=== PATIENT | female | born 1960 | race Caucasian/White ===

== ENCOUNTER 2019-09-18 11:17 | Emergency (ER) | payer OTHER, SELFPAY ==
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
--- NOTE | 2019-09-18 13:10 | RAD REPORT ---
EXAM DESCRIPTION: RAD - Ankle Left 3 View - 09/18/2019 12:50 pm CLINICAL HISTORY: ankle pain COMPARISON: <Comparisons> FINDINGS: No acute fracture or dislocation. Small ankle joint effusion seen. Small calcaneal spurs.
--- NOTE | 2019-09-18 13:12 | RAD REPORT ---
EXAM DESCRIPTION: RAD - Foot Left 3 View - 09/18/2019 12:50 pm CLINICAL HISTORY: foot pain COMPARISON: <Comparisons> FINDINGS: No acute fracture or dislocation is seen. Small calcaneal spurs.
[2019-09-18 13:25] VITALS: BP 124/92; TEMP 98.7; O2SAT 100
== END 2019-09-18 13:04 | disposition home or self-care (01) ==
LOC: ER 11:17
DX: S93.402A Sprain of unspecified ligament of left ankle, initial encounter (principal); V28.1XXA Motorcycle passenger injured in noncollision transport accident in nontraffic accident, initial encounter; Y93.89 Activity, other specified; Y92.410 Unspecified street and highway as the place of occurrence of the external cause
CPT/HCPCS: 99282

== ENCOUNTER 2021-07-30 10:14 | Emergency (ER) | payer OTHER ==
--- NOTE | 2021-07-30 11:57 | RAD REPORT ---
EXAM DESCRIPTION: RAD - Knee Left 3 View - 07/30/2021 11:47 am CLINICAL HISTORY: pain post fall Fall, trauma, pain COMPARISON: No comparisons FINDINGS: Small suprapatellar joint effusion is seen. Lucency is seen the anterior aspect of the pat cristian likely representing a patella fracture.
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
--- NOTE | 2021-07-30 13:10 | ER ---
Nurse's Notes [facility] Name: Francisca Wolfe Age: 60 yrs Sex: Female : 1960 Arrival Date: 07/30/2021 Time: 10:16 Bed DX3 Private MD: Diagnosis: Fracture of patella;Fall on same level, unspecified Presentation: 07/30 10:31 Chief complaint: Patient states: left knee pain post fall at [facility]. Denies head aa5 injury or any other complaints. Coronavirus screen: At this time, the client does not indicate any symptoms associated with coronavirus-19. Ebola Screen: Patient negative for fever greater than or equal to 101.5 degrees Fahrenheit, and additional compatible Ebola Virus Disease symptoms. Initial Sepsis Screen: Does the patient meet any 2 criteria? No. Patient's initial sepsis screen is negative. Does the patient have a suspected source of infection? No. Patient's initial sepsis screen is negative. Risk Assessment: Do you want to hurt yourself or someone else? Patient reports no desire to harm self or others. Onset of symptoms was July 30, 2021. 10:31 Method Of Arrival: Wheelchair aa5 10:31 Acuity: EMILEE 4 aa5 Triage Assessment: 12:37 Injury Description: fall. ap3 Historical: - Allergies: 10:32 No Known Allergies; aa5 - PMHx: 10:32 chronic back pain; aa5 - Immunization history:: Adult Immunizations unknown. - Social history:: Smoking status: Patient denies any tobacco usage or history of. - Family history:: not pertinent. Screenin:35 Abuse screen: Denies threats or abuse. Nutritional screening: No deficits noted. ap3 Tuberculosis screening: No symptoms or risk factors identified. 12:38 Fall Risk Fall in past 12 months (25 points). No secondary diagnosis (0 pts). No IV (0 ap3 pts). Ambulatory Aid- Crutches/Cane/Walker (15 pts). Gait- Weak (10 pts.). Mental Status- Oriented to own ability (0 pts). Total Carlos Fall Scale indicates High Risk Score (45 or more points). Fall prevention measures have been instituted. Frequent Obs/Assessments Occuring Family Present and informed to notify staff if the need to leave the bedside As available patient and family educated on Fall Prevention Program and Strategies. Assessment: 12:34 Reassessment: patient placed in treatment chair patient accompanied by spouse. ap3 12:35 General: Appears in no apparent distress. comfortable, Behavior is calm, cooperative, ap3 appropriate for age. Pain:. Neuro: Level of Consciousness is awake, alert, obeys commands, Oriented to person, place, time, situation, Appropriate for age [employer]r are equal bilaterally Speech is normal. Cardiovascular: Capillary refill < 3 seconds Patient's skin is warm and dry. Respiratory: Airway is patent Respiratory effort is even, unlabored, Respiratory pattern is regular, symmetrical. GI: No signs and/or symptoms were reported involving the gastrointestinal system. : No signs and/or symptoms were reported regarding the genitourinary system. EENT: No signs and/or symptoms were reported regarding the EENT system. Derm: No signs and/or symptoms reported regarding the dermatologic system. Musculoskeletal:. 12:36 Pain: Complains of pain in left knee. Musculoskeletal: Reports weakness in left leg ap3 numbness in left knee. Vital Signs: 10:31 BP 141 / 92; Pulse 68; Resp 18 S; Temp 97.4(TE); Pulse Ox 100% on R/A; Weight 63.5 kg aa5 (R); Height 5 ft. 2 in. (157.48 cm) (R); 10:31 Body Mass Index 25.61 (63.50 kg, 157.48 cm) aa5 ED Course: 10:16 Patient arrived in ED. as 10:31 Arm band placed on. aa5 10:32 Triage completed. aa5 11:47 Knee Left 3 View XRAY In Process Unspecified. EDMS 12:37 Patient has correct armband on for positive identification. Adult w/ patient. Pulse ox ap3 on. NIBP on. Warm blanket given. 12:41 Oneal Waters MD is Attending Physician. kartik 13:06 Knee immobilizer applied on left knee. iw 13:08 Vladimir Rodríguez MD is Referral Physician. kartik 13:15 Daksha Call RN is Primary Nurse. iw 13:22 No provider procedures requiring assistance completed. Patient did not have IV access kg during this emergency room visit. Administered Medications: 13:20 Not Given (Patient Refused): [place] (HYDROcodone-acetaminophen) 10 mg-325 mg 1 tabs PO kg once; RASS on ADMIN: Combtv4, Very Agttd3, Agttd2, Rstlss1, AlertClm0, Drwsy-1, Lt Sdtn-2, Mod Sdtn-3, Dp Sdtn-4, UnArsble-5 13:20 Not Given (Patient Refused): Motrin (ibuprofen) 600 mg PO once kg Outcome: 13:09 Discharge ordered by . kartik 13:22 Discharged to home via wheelchair. kg 13:22 Condition: good 13:22 Discharge instructions given to patient, family, Instructed on discharge instructions, follow up and referral plans. Demonstrated understanding of instructions, follow-up care. 13:26 Patient left the ED. iw Signatures: Dispatcher [employer] EDMS Oneal Waters MD MD cha Martinez, Amelia as Williams, Irene, RN RN iw Deidra Sow RN RN aa5 Kasie Kovacs RN RN ap3 Shyla Dunn RN RN kg Corrections: (The following items were deleted from the chart) 10:33 10:31 Chief complaint: Patient states: left knee pain post fall at [facility]. aa5 aa5
[2021-07-30 13:39] VITALS: BP 141/92; TEMP 97.4; O2SAT 100
[2021-07-30] MEDS ORDERED: HYDROCODONE/APAP 10/325 TAB ONE (13:42)
[2021-07-30] MEDS ORDERED: IBUPROFEN 200 MG TAB PO ONE (13:42)
== END 2021-07-30 13:26 | disposition home or self-care (01) ==
LOC: ER 10:14
DX: S82.002A Unspecified fracture of left patella, initial encounter for closed fracture (principal); W18.30XA Fall on same level, unspecified, initial encounter; Y92.512 Supermarket, store or market as the place of occurrence of the external cause
CPT/HCPCS: 99283

== ENCOUNTER 2024-04-12 11:17 | Emergency (ER) | payer OTHER ==
[2024-04-12] MEDS ORDERED: TDAP (DIPHTH,PERTUSS(ACELL),TET VAC) 0.5 ML VIAL IMVAC ONE (11:34)
--- NOTE | 2024-04-12 11:43 | ER ---
Nurse's Notes [facility] Name: Francisca Wolfe Age: 63 yrs Sex: Female : 1960 Arrival Date: 04/12/2024 Time: 11:17 Bed 11 Private MD: Diagnosis: Bitten by horse, initial encounter Presentation: 04/12 11:25 Chief complaint: Patient states: she was bitten by her horse on her right upper arm. ap3 patient currently states her pain is a 10/10 on the pain scale. Coronavirus screen: At this time, the client does not indicate any symptoms associated with coronavirus-19. Ebola Screen: No symptoms or risks identified at this time. Initial Sepsis Screen: Does the patient meet any 2 criteria? No. Patient's initial sepsis screen is negative. Does the patient have a suspected source of infection? No. Patient's initial sepsis screen is negative. Risk Assessment: Do you want to hurt yourself or someone else? Patient reports no desire to harm self or others. Onset of symptoms was April 12, 2024. 11:25 Method Of Arrival: Ambulatory ap3 11:25 Acuity: EMILEE 3 ap3 Triage Assessment: 11:27 General: Appears uncomfortable, Behavior is calm, cooperative, appropriate for age. ap3 Pain: Complains of pain in right bicep Pain currently is 10 out of 10 on a pain scale. Neuro: Level of Consciousness is awake, alert, obeys commands, Oriented to person, place, time, situation, Appropriate for age. Cardiovascular: Patient's skin is warm and dry. Respiratory: Airway is patent Respiratory effort is even, unlabored, Respiratory pattern is regular, symmetrical. Derm: Wound noted right bicep. Historical: - Allergies: 11:26 No Known Allergies; ap3 - PMHx: 11:26 chronic back pain; ap3 - Immunization history:: Client reports receiving the 2nd dose of the Covid vaccine, Last tetanus immunization: unknown. - Infectious Disease History:: Denies. - Social history:: Smoking status: Patient denies any tobacco usage or history of. Screenin:27 [facility] ED Fall Risk Assessment (Adult) History of falling in the last 3 months, ap3 including since admission No falls in past 3 months (0 pts) Confusion or Disorientation No (0 pts) Intoxicated or Sedated No (0 pts) Impaired Gait No (0 pts) Mobility Assist Device Used No (0 pt) Altered Elimination No (0 pt) Score/Fall Risk Level 0 - 2 = Low Risk Oriented to surroundings, Maintained a safe environment, Educated pt \T\ family on fall prevention, incl call for assistance when getting out of bed, Assessed \T\ reinforced patient's understanding of fall precautions, Provided non-skid footwear, Hourly rounding (assess needs \T\ fall precautionary measures) done, Used ambulatory aids as needed (educated on \T\ assisted with), Used gait belt as appropriate. Abuse screen: Denies threats or abuse. Nutritional screening: No deficits noted. Tuberculosis screening: No symptoms or risk factors identified. Vital Signs: 11:25 BP 172 / 96; Pulse 80; Resp 19; Temp 98.8; Pulse Ox 100% ; Weight 63.5 kg; Height 5 ft. ap3 2 in. ; Pain 10/10; 11:25 Body Mass Index 25.61 (63.50 kg, 157.48 cm) ap3 11:25 Pain Scale: Adult ap3 ED Course: 11:18 Patient arrived in ED. mr 11:19 David Degroot DO is Attending Physician. ms3 11:26 Triage completed. ap3 11:28 Arm band placed on left wrist. ap3 11:37 Jose Mendez DO is Referral Physician. ms3 11:41 Kasie Kovacs, RN is Primary Nurse. ap3 11:58 No provider procedures requiring assistance completed. Patient did not have IV access ap3 during this emergency room visit. 11:59 Patient has correct armband on for positive identification. Provided Education on: ap3 wound care. Administered Medications: 11:41 Drug: Boostrix Tdap IM 0.5 ml IM once; as a single dose Route: IM; Site: left deltoid; ap3 11:58 Follow up: Response: No adverse reaction ap3 Medication: 11:59 VIS not applicable for this client. ap3 Outcome: 11:42 Discharge ordered by . ms3 11:58 Discharged to home ambulatory, ap3 11:58 Condition: good 11:58 Discharge instructions given to patient, family, Instructed on discharge instructions, follow up and referral plans. medication usage, Demonstrated understanding of instructions, follow-up care, medications, Prescriptions given X 1, 11:59 Patient left the ED. ap3 Signatures: Nida Oh, Reg Reg mr Kasie Kovacs, RN RN ap3 David Degroot DO DO ms3 Corrections: (The following items were deleted from the chart) 11:27 11:26 PSHx: None; ap3 ap3
--- NOTE | 2024-04-12 11:43 | EDPHYS ---
Physician Documentation [facility] Name: Francisca Wolfe Age: 63 yrs Sex: Female : 1960 Arrival Date: 04/12/2024 Time: 11:17 Bed 11 Private MD: ED Physician David Degroot HPI: 04/12 16:45 This 63 yrs old Female presents to ER via Ambulatory with complaints of Horse bite. ms3 16:45 63-year-old female with past medical history of chronic back pain presents to the [facility] emergency department for right arm horse bite occurred approximately 2 hours prior to arrival. Patient states her pain is 10/10. Patient is unaware of her last tetanus vaccine.. Historical: - Allergies: 11:26 No Known Allergies; ap3 - PMHx: 11:26 chronic back pain; ap3 - Immunization history:: Client reports receiving the 2nd dose of the Covid vaccine, Last tetanus immunization: unknown. - Infectious Disease History:: Denies. - Social history:: Smoking status: Patient denies any tobacco usage or history of. ROS: 16:45 Constitutional: Negative for fever, and chills. Neck: Negative for injury, pain, and ms3 swelling, Cardiovascular: Negative for chest pain, and palpitations. Respiratory: Negative for shortness of breath, cough, wheezing, and pleuritic chest pain, Abdomen/GI: Negative for abdominal pain, nausea, vomiting, diarrhea, and constipation, MS/Extremity: Negative for injury and deformity, 16:45 Skin: Positive for abrasion(s), ecchymosis, Exam: 16:45 Constitutional: This is a well developed, well nourished patient who is awake, alert, ms3 and in no acute distress. Head/Face: Normocephalic, atraumatic. Neck: Trachea midline, no cervical lymphadenopathy. Supple, full range of motion without nuchal rigidity, or vertebral point tenderness. No Meningismus. Chest/axilla: Normal chest wall appearance and motion. Nontender with no deformity. Cardiovascular: Regular rate and rhythm with a normal S1 and S2. No gallops, murmurs, or rubs. Normal PMI, no JVD. No pulse deficits. Respiratory: Lungs have equal breath sounds bilaterally, clear to auscultation and percussion. No rales, rhonchi or wheezes noted. No increased work of breathing, no retractions or nasal flaring. Abdomen/GI: Soft, non-tender, with normal bowel sounds. No distension or tympany. No guarding or rebound. No evidence of tenderness throughout. 16:45 Skin: injury, abrasion(s), small abrasion noted, of the right arm, contusion(s), that are deep, of the right arm, Vital Signs: 11:25 BP 172 / 96; Pulse 80; Resp 19; Temp 98.8; Pulse Ox 100% ; Weight 63.5 kg; Height 5 ft. ap3 2 in. ; Pain 10/10; 11:25 Body Mass Index 25.61 (63.50 kg, 157.48 cm) ap3 11:25 Pain Scale: Adult ap3 MDM: 11:29 Patient medically screened. ms3 16:45 Differential diagnosis: abrasion, Horse bite vs Hematoma. Data reviewed: vital signs, ms3 nurses notes, and as a result, I will discharge patient. I considered the following discharge prescriptions or medication management in the emergency department Medications were administered in the Emergency Department. See MAR. Counseling: I had a detailed discussion with the patient and/or guardian regarding the historical points, exam findings, and any diagnostic results supporting the discharge/admit diagnosis, the need for outpatient follow up, to return to the emergency department if symptoms worsen or persist or if there are any questions or concerns that arise at home. ED course: Discussed PE findings with patient. Patient to follow up with PMD in 2-3 days. Patient understands/ agrees with plan. All questions answered. Return precautions given to include worsening symptoms, or any other concerns.. Administered Medications: 11:41 Drug: Boostrix Tdap IM 0.5 ml IM once; as a single dose Route: IM; Site: left deltoid; ap3 11:58 Follow up: Response: No adverse reaction ap3 Disposition Summary: 04/12/24 11:42 Discharge Ordered Notes: Location: Home ms3 Condition: Stable ms3 Diagnosis - Bitten by horse, initial encounter ms3 Followup: ms3 - With: Jose Mendez DO - When: 2 - 3 days - Reason: Recheck today's complaints Discharge Instructions: - Discharge Summary Sheet ms3 - Animal Bite, Adult, [id number] ms3 Forms: - Medication Reconciliation Form ms3 - Antibiotic Education ms3 - Prescription Opioid Use ms3 - Patient Portal Instructions ms3 - Leadership Thank You Letter ms3 Prescriptions: - Augmentin 875-125 mg Oral Tablet - take 1 tablet ORAL route every 12 hours for 10 days; 20 tablet; Refills: 0, ms3 Product Selection Permitted Signatures: Kasie Kovacs RN RN ap3 David Degroot DO DO ms3 Corrections: (The following items were deleted from the chart) 11:27 11:26 PSHx: None; ap3 ap3
[2024-04-12 12:22] VITALS: BP 172/96; TEMP 98.8; O2SAT 100
== END 2024-04-12 11:59 | disposition home or self-care (01) ==
LOC: ER 11:17
DX: S40.811A Abrasion of right upper arm, initial encounter (principal); W55.11XA Bitten by horse, initial encounter
CPT/HCPCS: 96372; 99284

== ENCOUNTER 2024-04-28 18:00 | Emergency (ER) | payer OTHER ==
--- OUTSIDE RECORDS SUMMARY | 2024-04-28 18:03 | XMS REPORT | Continuity of Care Document ---
Author Name Unknown Address [address] [place] [address] [facility] thconnect Address [address] [place] [address] Care Team Providers Care Food Sampler Name Role Phone PCP, PATIENT DOES NOT HAVE A Primary Care Physic margareth Unavailable DR CESAR MADISON Attending Clinician Unavailable KAROL MITCHELL Attending Clinician Unavailab NIKI Melendez Attending Clinician Unava CALVIN Ramirez Attending Clinician Unavailable KIRSTIN WHITE Attending Clinician UnaLEE Krause Attending Clinician Unavailable LAB90 Attending Clinician Unavailable LOKESH RIBEIRO Attending Clinician Unavailable MD NURY Attending Clinician Unavailab jackson WILLS Attending Clinician Unavailable RADIOLOGY Attending Clinician Unavailable Radiology Attending Clinician Unavailable DR CESAR MADISON Admitting Clinician Unavailable JENN MORENO Admitting Clinician Unavailabl e Payers Payer Name Policy Type Policy Number Effective Date Expirati on Date Source 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 9 [id number] 2023 00:00:00 CIG[employer] I [id number] 2014 00:00:00 Problems Condition Name Condition Details Condition Category Status Onset Date Resolution Date Last Treatment Date Treating Clinician Comments Source Mild persistent asthma (HHS-HCC) Mild persistent asthma (HHS-HCC) Disease Active 05-08 00:00: 00 Kay Secheikh - Externa l Right Pneumothor ax Right Pneumothor ax Disease Active 02-27 00:00: 00 [facility] Right Hemothorax Right Hemothorax Disease Active 02-27 00:00: 00 [facility] Rib fracture (right 3rd through 8th) Rib fracture (right 3rd through 8th) Disease Active 02-27 00:00: 00 [facility] Right Scapula fracture Right Scapula fracture Disease Active 02-27 00:00: 00 [facility] Concussion Concussion Disease Active 02-27 00:00: 00 [facility] Allergies, Adverse Reactions, Alerts Allergy Name Allergy Type Status Severity Reaction(s) Onset Date Inactive Date Treating Clinician Comments Source NO KNOWN ALLERGIE S Drug Class Active [facility] Social History Social Habit Start Date Stop Date Quantity Comments Source Gender identity Salma Nieves - External Sexual orientation Danielle Nieves - External History SDOH Alcohol Std Drinks [facility] History SDOH Alcohol Binge [facility] History SDOH Alcohol Frequency [facility] Alcoholic beverage intake 2024-04-18 00:00:00 2024-04-18 00:00:00 Current drinker of alcohol (finding) Kay Nieves - External History of Social function 2023-02-23 00:00:00 2023-02-23 00:00:00 Kay Nieves - External Alcohol intake 2023-02-23 00:00:00 2023-02-23 00:00:00 Current drinker of alcohol (finding) Kay Nieves - External Tobacco use and exposure 2022-12-29 00:00:00 2022-12-29 00:00:00 Smokeless tobacco non-user Kay Nieves - External Exposure to SARS-CoV-2 (event) 2022-02-23 00:00:00 2022-03-05 15:31:00 Not sure [facility] Alcohol Comment 2016-01-09 00:00:00 2016-01-09 00:00:00 Daily wine [facility] Sex assigned at 1960 00:00:00 1960 00:00:00 Kay Nieves - External Smoking Status Start Date Stop Date Source Never smoked tobacco Kay Nieves - External Former smoker 2015-02-27 00:00:00 2015-02-27 00:00:00 [facility] Medications Ordered Medication Name Filled Medication Name Start Date Stop Date Current Medication? Ordering Clinician Indication Dosage Frequency Signature (SIG) Comments Components Source Tizanidine HCl 2 MG oral Tablet 04-18 00:00: 00 Yes [id number] 2mg Take 1 tablet (2 mg total) by mouth every 12 hours as needed for muscle spasms. Kay brice Naproxen 500 MG oral Tablet 04-18 00:00: 00 Yes [id number] 500mg Q.5D Take 1 tablet (500 mg total) by mouth 2 times daily as needed (Pain). Kay brice Amoxicillin -Pot Clavulanate 875-125 MG oral Tablet 04-12 00:00: 00 Yes TAKE ONE (1) TABLET(S) BY MOUTH EVERY TWELVE HOURS FOR 10 DAYS. Kay brice Neomycin-Po lymyxin-Dex ameth 3.5-63516-6 .1 ophthalmic Suspension 03-18 00:00: 00 Yes INSTILL ONE (1) DROP INTO LEFT EYE FOUR TIMES A DAY FOR SEVEN DAY. Kay brice Escitalopra m Oxalate 10 MG oral Tablet 02-24 00:00: 00 Yes [id number] 10mg Take 1 tablet (10 mg total) by mouth daily. Kay brice Tizanidine HCl 4 MG oral Tablet 02-24 00:00: 00 04-18 00:00 :00 No [id number] 4mg Q.25D Take 1 tablet (4 mg total) by mouth every 6 hours as needed for muscle spasms. Kay brice LISINOPRIL- HCTZ 10-12.5 MG oral Tablet 02-24 00:00: 00 02-24 00:00 :00 No [id number] 1{tbl} Take 1 tablet by mouth daily. Kay brice Fluticasone -Salmeterol 250-50 MCG/ACT inhalation AEROSOL POWDER, BREATH ACTIVATED 02-23 00:00: 00 Yes [id number] 1{puff} Inhale 1 puff into the lungs 2 times daily Kay Seybold - Externa l Albuterol HFA 108 (90 Base) MCG/ACT IN AERS 4-10 00:00: 00 Yes [id number] 2{puff} Q.25D Inhale 2 puffs into the lungs every 6 hours as needed for wheezing or shortness of breath Kay Seybold - Externa l Albuterol HFA 108 (90 Base) MCG/ACT IN AERS 2-23 00:00: 00 Yes [id number] 2{puff} Q.25D Inhale 2 puffs into the lungs every 6 hours as needed for wheezing or shortness of breath Kay Seybold - Externa l No known medications 01-10 10:03: 36 No [facility] Immunizations Ordered Immunization Name Filled Immunization Name Date Status Comments Source Influenza, Injectable, Mdck, Preservative Free, Quadrivalt 2022-10-03 00:00:00 Completed Kay Seybold - External Influenza, Injectable, Mdck, Preservative Free, Quadrivalt 2022-10-03 00:00:00 Completed Kay Seybold - External Influenza, Injectable, Mdck, Preservative Free, Quadrivalt 2022-10-03 00:00:00 Completed Kay Seybold - External Influenza, Injectable, Mdck, Preservative Free, Quadrivalt 2022-10-03 00:00:00 Completed Kay Seybold - External Influenza, Injectable, Mdck, Preservative Free, Quadrivalent Unknown Completed Kay Seybold - External Influenza, Injectable, Mdck, Preservative Free, Quadrivalent Unknown Completed Kay Seybold - External Influenza, Injectable, Mdck, Preservative Free, Quadrivalent Unknown Completed Kay Seybold - External Vital Signs Vital Name Observation Time Observation Value Comments S ourrobert Systolic blood pressure 2024-04-18 13:56:00 160 mm[Hg] Kay Mckeono ld - External Diastolic blood pressure 2024-04-18 13:56:00 88 mm[Hg] Kay Mckeono ld - External Body height 2024-04-18 13:56:00 157.5 cm Salma mansfield Seybold - External Body weight 2024-04-18 13:56:00 60.782 kg Salma ey Seybold - External BMI 2024-04-18 13:56:00 24.51 kg/m2 Salma ey Seybold - External Systolic blood pressure 2024-02-25 15:43:00 158 mm[Hg] Kay Seybo ld - External Diastolic blood pressure 2024-02-25 15:43:00 84 mm[Hg] Kay Seybo ld - External Heart rate 2024-02-25 15:43:00 89 /min Kelse y Seybold - External Body temperature 2024-02-25 15:43:00 36.83 Michelle Kay Seybold - External Respiratory rate 2024-02-25 15:43:00 15 /min Kay Seybold - External Body height 2024-02-25 15:43:00 157.5 cm Salma ey Seybold - External Body weight 2024-02-25 15:43:00 63.05 kg Salma ey Seybold - External BMI 2024-02-25 15:43:00 25.42 kg/m2 Salma ey Seybold - External Oxygen saturation in Arterial blood by Pulse oximetry 2024-02-25 15:43:00 100 /min Kay Seybo ld - External Systolic blood pressure 2023-02-23 14:51:00 145 mm[Hg] Kay Seybo ld - External Diastolic blood pressure 2023-02-23 14:51:00 85 mm[Hg] Kay Seybo ld - External Heart rate 2023-02-23 14:51:00 69 /min Kjse y Seybold - External Body temperature 2023-02-23 14:51:00 36.44 Michelle Kay Seybold - External Respiratory rate 2023-02-23 14:51:00 18 /min Kay Seybold - External Body height 2023-02-23 14:51:00 157.5 cm Salma ey Seybold - External Body weight 2023-02-23 14:51:00 63.957 kg Salma ey Seybold - External BMI 2023-02-23 14:51:00 25.79 kg/m2 Salma ey Seybold - External Oxygen saturation in Arterial blood by Pulse oximetry 2023-02-23 14:51:00 100 /min Kay Conroyybo ld - External Systolic blood pressure 2023-01-08 14:14:00 156 mm[Hg] Kay Seybo ld - External Diastolic blood pressure 2023-01-08 14:14:00 86 mm[Hg] Kay Seybo ld - External Heart rate 2023-01-08 14:14:00 84 /min Kelse y Seybold - External Body temperature 2023-01-08 14:14:00 36.61 Michelle Kay Seybold - External Respiratory rate 2023-01-08 14:14:00 18 /min Kay Seybold - External Body height 2023-01-08 14:14:00 157.5 cm Salma ey Seybold - External Body weight 2023-01-08 14:14:00 63.504 kg Salma ey Seybold - External BMI 2023-01-08 14:14:00 25.61 kg/m2 Salma ey Seybold - External Oxygen saturation in Arterial blood by Pulse oximetry 2023-01-08 14:14:00 96 /min Kay Seybo ld - External Diastolic blood pressure 2022-12-29 14:06:00 76 mm[Hg] Kay Seybo ld - External Heart rate 2022-12-29 14:06:00 78 /min Kelse y Seybold - External Body temperature 2022-12-29 14:06:00 36.56 Michelle Kay Seybold - External Respiratory rate 2022-12-29 14:06:00 14 /min Kay Seybold - External Body height 2022-12-29 14:06:00 157.5 cm Salma ey Seybold - External Body weight 2022-12-29 14:06:00 63.957 kg Salma ey Seybold - External BMI 2022-12-29 14:06:00 25.79 kg/m2 Salma ey Seybold - External Oxygen saturation in Arterial blood by Pulse oximetry 2022-12-29 14:06:00 99 /min Kay Seybo ld - External Systolic blood pressure 2022-12-29 14:06:00 134 mm[Hg] Kay Seybo ld - External Procedures Procedure Date / Time Performed Performing Clinician Source US PELVIS COMPLETE WITH TRANSVAGINAL 2022-03-26 19:32:37 Requisition, Paper [facility] Encounters Start Date/Time End Date/Time Encounter Type Admission Type Attending [facility] Facility Care Department Encounter ID Source 2018-09-16 13:00:00 Inpatient CESAR CARMONA [facility] ILSA Dolan [id number] [facility] 2024-07-25 10:00:00 2024-07-25 10:00:00 Outpatient KAROL MITCHELL [id number] [facility] 2024-05-10 09:00:00 2024-05-10 09:00:00 Outpatient NIKI BROWN [id number] [facility] 2024-04-28 16:00:00 2024-04-28 16:00:00 Outpatient CALVIN MONTELONGO [id number] [facility] 2024-04-21 00:00:00 2024-04-21 00:00:00 Outpatient KAROL MITCHELL [id number] [facility] 2024-04-21 00:00:00 2024-04-21 00:00:00 Outpatient KAY VILLANUEVA [id number] Kay [facility] 2024-04-19 15:25:00 2024-04-19 15:25:00 Outpatient KAY VILLANUEVA [id number] [facility] 2024-04-19 15:20:00 2024-04-19 15:20:00 Outpatient KAY VILLANUEVA [id number] Kay [facility] 2024-04-19 15:15:00 2024-04-19 15:15:00 Outpatient KAY VILLANUEVA [id number] Kay [facility] 2024-04-19 00:00:00 2024-04-19 00:00:00 Outpatient KAROL MITCHELL [id number] [facility] 2024-04-19 00:00:00 2024-04-19 00:00:00 Outpatient KAROL MITCHELL [id number] [facility] 2024-04-19 00:00:00 2024-04-19 00:00:00 Outpatient KAROL MITCHELL [id number] Kelsey Seybold 2024-04-18 10:20:00 2024-04-18 10:20:00 Outpatient KAY KAY [id number] Kay Seybold 2024-04-18 09:50:00 2024-04-18 09:50:00 Outpatient KAY KAY [id number] Kay Seybold 2024-04-18 08:45:00 2024-04-18 08:45:00 Outpatient MITCHELLKAROL MANZANARES KAY VILLANUEVA [id number] Kay Seybold 2024-04-18 00:00:00 2024-04-18 00:00:00 Outpatient KAY KAY [id number] Kay Seybold 2024-04-07 09:15:00 2024-04-07 09:15:00 Outpatient KAY VILLANUEVA [id number] Kay Seybold 2024-04-04 09:15:00 2024-04-04 09:15:00 Outpatient KAY VILLANUEVA [id number] Kay Seybold 2024-03-15 09:00:00 2024-03-15 09:00:00 Outpatient KIRSTIN WHITE [id number] Kay Seybold 2024-03-09 16:00:00 2024-03-09 16:00:00 Outpatient LEE MARTÍNEZ [id number] Kay Seybold 2024-03-03 00:00:00 2024-03-03 00:00:00 Outpatient KIRSTIN WHITE [id number] Kay Seybold 2024-02-26 00:00:00 2024-02-26 00:00:00 Outpatient KIRSTIN WHITE [id number] Kay Seybold 2024-02-25 11:25:00 2024-02-25 11:25:00 Outpatient SHAYY VILLANUEVA [id number] Kay Seybold 2024-02-25 10:30:00 2024-02-25 10:30:00 Outpatient KIRSTIN WHITE [id number] Kay Seybold 2023-06-17 10:15:00 2023-06-17 10:15:00 Outpatient KAY VILLANUEVA [id number] Kay Conroydolores 2023-05-08 10:00:00 2023-05-08 10:00:00 Outpatient LOKESH RIBEIRO KAY VILLANUEVA [id number] Kay Ezequiel 2023-05-04 09:30:00 2023-05-04 09:30:00 Outpatient JUAN RAMONHEATHERSMITHACHYNA VILLANUEVA [id number] Kay Conroydolores 2023-03-09 00:00:00 2023-03-09 00:00:00 Outpatient MD KAY CURTIS [id number] [facility] 2023-02-23 10:00:00 2023-02-23 10:00:00 Outpatient LOKESH RIBEIRO [id number] Kay [facility] 2023-02-11 00:00:00 2023-02-11 00:00:00 Outpatient MD KAY CURTIS [id number] Kay [facility] 2023-02-09 10:30:00 2023-02-09 10:30:00 Outpatient PLAB KAY VILLANUEVA [id number] Kay [facility] 2023-01-26 11:00:00 2023-01-26 11:00:00 Outpatient PLAB KAY VILLANUEVA [id number] Kay [facility] 2023-01-09 11:00:00 2023-01-09 11:00:00 Outpatient JUAN RAMONHEATHERLOKESH KAY VILLANUEVA [id number] Kay dolores 2023-01-08 08:30:00 2023-01-08 08:30:00 Outpatient GEMASMITHACHYNA VILLANUEVA [id number] Kay [facility] 2023-01-05 00:00:00 2023-01-05 00:00:00 Outpatient KIRSTIN WHITE [id number] Kay Seybold 2023-01-02 13:45:00 2023-01-02 13:45:00 Outpatient KAY VILLANUEVA [id number] Kay Seybdolores 2023-01-01 12:40:00 2023-01-01 12:40:00 Outpatient KAY VILLANUEVA [id number] [facility] 2023-01-01 00:00:00 2023-01-01 00:00:00 Outpatient KIRSTIN WHITE [id number] Kay Nieves 2022-12-29 08:00:00 2022-12-29 08:00:00 Outpatient KIRSTIN WHITE [id number] Kay Nieves 2022-03-26 13:25:57 2022-03-26 23:59:00 Outpatient R [facility] [id number] [facility] 2022-03-26 13:25:57 2022-03-26 23:59:00 Hospital Encounter Radiology [facility] [id number] [facility] 2018-10-28 12:40:00 2018-10-28 16:20:00 Outpatient Kelsi MADISON CESAR [facility] Dolan [id number] [facility] 2018-04-08 11:29:00 2018-04-08 15:18:00 Outpatient CESAR CARMONA [facility] ILSA C [id number] [facility] Notes Date/Time Note Provider Source 2024-04-18 09:00:58 [id number]:00:58F ormatting of this note is different from the original.Chief ComplaintPatient presents withBack PainLower backHx of PT, injection and 1 [place] [address]-9Hkbpd [id number]:47:21Nurse [id number] for patient [id number] NoteLNNARRATIVEFormatted C-CDA narrative textKAYJosyAultman Orrville Hospital[address] [facility] [facility] [id number] [facility]"
[2024-04-28 18:57] LABS: Absolute Eosinophils 0.1 K/uL (0-0.5); Absolute Lymphocytes (CBC) 1.8 K/uL (0.7-4.9); Absolute Monocytes 0.6 K/uL (0.1-1.3); Absolute Neutrophil 3.6 K/uL (1.8-8.0); Basophils % 0.7 % (0-1.3); Eosinophils % 1.8 % (0-4.4); Hematocrit 33.6 % (36.0-45.0); Hemoglobin 11.5 g/dL (12.0-15.0); Lymphocytes % 28.8 % (15.3-44.8); MCH 34.9 pg (27.0-35.0); MCHC 34.2 g/dL (32.0-36.0); MCV 102.1 fL (80-100); MPV 7.4 fL (7.6-11.3); Monocytes % 9.1 % (3.3-12.3); Neutrophils % 59.6 % (41.7-73.7); Nucleated Red Blood Cells % 0.1 % (0-0); Platelets 246 thou/uL (152-406); Red Cell Distribution Width 13.6 % (12.1-15.2)
[2024-04-28 19:00] LABS: Anion Gap 11.2 mEq/L (5.0-15.0); Potassium 4.2 mEq/L (3.5-5.1)
--- NOTE | 2024-04-28 19:59 | EDPHYS ---
Physician Documentation [facility] Name: Francisca Wolfe Age: 63 yrs Sex: Female : 1960 Arrival Date: 04/28/2024 Time: 18:00 Bed 8 Private MD: ED Physician Oneal Waters HPI: 04/28 23:49 This 63 yrs old Female presents to ER via Ambulatory with complaints of Boil. kb 23:49 Pt is a 63 year old female who presents for hematoma to right upper arm. States she was kb bitten by a horse 2 weeks ago and developed the hematoma. States it has gotten a little smaller than the original hematoma, but today she had pain and warmth that she hasn't had previously. Historical: - Allergies: 18:13 No Known Allergies; as6 - PMHx: 18:13 chronic back pain; as6 - PSHx: 18:13 back (chronic back pain); as6 - Immunization history:: Adult Immunizations up to date. - Infectious Disease History:: Denies. - Social history:: Smoking status: Patient denies any tobacco usage or history of. ROS: 19:47 Constitutional: As per HPI kb Exam: 23:45 Constitutional: This is a well developed, well nourished patient who is awake, alert, kb and in no acute distress. Head/Face: Normocephalic, atraumatic. ENT: Moist Mucous membranes Cardiovascular: Regular rate Respiratory: Respirations even and unlabored. No increased work of breathing. Talking in full sentences Abdomen/GI: Soft, non-tender. No distention MS/ Extremity: Pulses equal, no cyanosis. Neurovascular intact. Full, normal range of motion. Neuro: Awake and alert, GCS 15, oriented to person, place, time, and situation. Moves all extremities. Normal gait. 23:45 Skin: baseball sized hematoma to right upper arm with fluctuance and bruising. Vital Signs: 18:11 BP 128 / 81; Pulse 79; Resp 18; Temp 97.9; Pulse Ox 94% ; Weight 63.5 kg; Height 5 ft. as6 2 in. ; Pain 2/10; 20:09 BP 124 / 79; Pulse 72; Resp 18; Pulse Ox 95% ; cp4 18:11 Body Mass Index 25.61 (63.50 kg, 157.48 cm) as6 18:11 Pain Scale: Adult as6 MDM: 18:13 Patient medically screened. kb 19:47 Data reviewed: vital signs, nurses notes. ED course: Dr Carpenter contacted at 1834, 1902 kb and 1947. Awaiting callback. 20:00 Differential diagnosis: hematoma, cellulitis, abscess. Consideration of kb Admission/Observation Escalation of care including admission/observation considered. admission considered but pt refuses to stay overnight. States she will call Dr Carpenter's office tomorrow to make an appt. Management of patient was discussed with the following: Ham Passer: Dr Carpenter accepts pt for admission. Wants pt NPO after midnight for OR tomorrow. 20:00 Counseling: I had a detailed discussion with the patient and/or guardian regarding the kb historical points, exam findings, and any diagnostic results supporting the discharge/admit diagnosis, lab results, the need for further work-up and treatment in the hospital. ED course: PT states she does not want to stay overnight. States she lives down [address] and would like to sleep in her own bed. Pt does not think staying overnight is necessary. Pt educated that Dr Carpenter will do surgery to drain the hematoma tomorrow morning, but she would have to be admitted in order for that to happen. Pt still refuses admission, stating she will follow up with him on outpatient basis to schedule surgery. Dr Carpenter notified . 04/28 18:26 Order name: CBC with Diff; Complete Time: 19:02 kb 04/28 18:26 Order name: Basic Metabolic Panel; Complete Time: 19:02 kb 04/28 18:26 Order name: IV Start; Complete Time: 18:37 kb Administered Medications: No medications were administered Disposition Summary: 04/28/24 19:58 Discharge Ordered Notes: Location: Home kb Condition: Stable kb Diagnosis - Hematoma right upper arm s/p horse bite kb Followup: kb - With: Emergency Department - When: As needed - Reason: Worsening of condition Followup: kb - With: Private Physician - When: 2 - 3 days - Reason: Recheck today's complaints, Continuance of care, Re-evaluation by your physician Followup: kb - With: Tam Carpenter MD - When: 1 - 2 days - Reason: Recheck today's complaints Discharge Instructions: - Discharge Summary Sheet kb - Hematoma, [id number] kb Forms: - Medication Reconciliation Form kb - Patient Portal Instructions kb - Leadership Thank You Letter kb Signatures: Dispatcher [employer] Lakeisha Davila FNP-C FNP-Ckb Slawson, Ashby, RN RN as6
--- NOTE | 2024-04-28 19:59 | ER ---
Nurse's Notes [facility] Name: Francisca Wolfe Age: 63 yrs Sex: Female : 1960 Arrival Date: 04/28/2024 Time: 18:00 Bed 8 Private MD: Diagnosis: Hematoma right upper arm s/p horse bite Presentation: 04/28 18:11 Chief complaint: Patient states: pt was bit by her horse 2 weeks ago and has been on as6 antibiotics and states she arm isn't getting better. abscess noted to right arm. Coronavirus screen: At this time, the client does not indicate any symptoms associated with coronavirus-19. Ebola Screen: No symptoms or risks identified at this time. Initial Sepsis Screen: Does the patient meet any 2 criteria? No. Patient's initial sepsis screen is negative. Does the patient have a suspected source of infection? No. Patient's initial sepsis screen is negative. Risk Assessment: Do you want to hurt yourself or someone else? Patient reports no desire to harm self or others. Onset of symptoms was May 13, 2024. 18:11 Method Of Arrival: Ambulatory as6 18:11 Acuity: EMILEE 3 as6 Historical: - Allergies: 18:13 No Known Allergies; as6 - PMHx: 18:13 chronic back pain; as6 - PSHx: 18:13 back (chronic back pain); as6 - Immunization history:: Adult Immunizations up to date. - Infectious Disease History:: Denies. - Social history:: Smoking status: Patient denies any tobacco usage or history of. Screenin:21 [facility] ED Fall Risk Assessment (Adult) History of falling in the last 3 months, mb9 including since admission No falls in past 3 months (0 pts) Confusion or Disorientation No (0 pts) Intoxicated or Sedated No (0 pts) Impaired Gait No (0 pts) Mobility Assist Device Used No (0 pt) Altered Elimination No (0 pt) Score/Fall Risk Level 0 - 2 = Low Risk Oriented to surroundings, Maintained a safe environment, Educated pt \T\ family on fall prevention, incl call for assistance when getting out of bed. Abuse screen: Denies threats or abuse. Nutritional screening: No deficits noted. Tuberculosis screening: No symptoms or risk factors identified. Assessment: 18:23 General: Appears in no apparent distress. Behavior is calm, cooperative. Pain: mb9 Complains of pain in right arm Quality of pain is described as throbbing, Pain began 2 WEEKS AGO. Neuro: Cruz Agitation-Sedation Scale (RASS): 0 - Alert and Calm Level of Consciousness is awake, alert, obeys commands, Oriented to person, place, time, situation, Appropriate for age. Cardiovascular: Patient's skin is warm and dry. Respiratory: Airway is patent Respiratory effort is even, unlabored, Respiratory pattern is regular, symmetrical. GI: No signs and/or symptoms were reported involving the gastrointestinal system. : No signs and/or symptoms were reported regarding the genitourinary system. EENT: No signs and/or symptoms were reported regarding the EENT system. Derm: Abscess located on right arm is SOFT BALL has no drainage, has foul odor, is hot to touch, is red. Musculoskeletal: Range of motion: intact in all extremities. 19:57 Reassessment: Patient states she does not want to stay overnight in the hospital for cp4 surgery in the morning. States she will follow up with surgeon outpatient. Provider aware. Vital Signs: 18:11 BP 128 / 81; Pulse 79; Resp 18; Temp 97.9; Pulse Ox 94% ; Weight 63.5 kg; Height 5 ft. as6 2 in. ; Pain 2/10; 20:09 BP 124 / 79; Pulse 72; Resp 18; Pulse Ox 95% ; cp4 18:11 Body Mass Index 25.61 (63.50 kg, 157.48 cm) as6 18:11 Pain Scale: Adult as6 ED Course: 18:04 Patient arrived in ED. mg5 18:13 Triage completed. as6 18:13 Lakeisha Jacob FNP-C is PHCP. kb 18:13 Oneal Waters MD is Attending Physician. kb 18:13 Arm band placed on. as6 18:20 Nida Mccurdy RN is Primary Nurse. mb9 18:20 Placed in gown. Bed in low position. Call light in reach. Side rails up X 1. Provided mb9 Education on: press call light if needing anything. Client placed on continuous cardiac and pulse oximetry monitoring. NIBP monitoring applied. school lunch monitor on. 18:37 Initial lab(s) drawn, by me, sent to lab. Inserted saline lock: 20 gauge in left jg11 antecubital area, using aseptic technique. Blood collected. 18:37 Basic Metabolic Panel Sent. jg11 18:37 CBC with Diff Sent. jg11 18:49 Basic Metabolic Panel Sent. jg11 18:49 CBC with Diff Sent. jg11 19:07 Report given to HENRRY Kramer. mb9 19:58 Tam Carpenter MD is Referral Physician. kb 20:08 No provider procedures requiring assistance completed. intact, bleeding controlled, No cp4 redness/swelling at site. Pressure dressing applied. Administered Medications: No medications were administered Medication: 18:20 VIS not applicable for this client. mb9 Outcome: 19:58 Discharge ordered by . kb 20:08 Discharged to home ambulatory, cp4 20:08 Condition: stable 20:08 Discharge instructions given to patient, Instructed on discharge instructions, follow up and referral plans. Demonstrated understanding of instructions, follow-up care, 20:10 Patient left the ED. cp4 Signatures: Lakeisha Jacob, DRY CLEANING MANAGER-C DRY CLEANING MANAGER-CkMyron Hill RN RN as6 Nida Mccurdy RN RN mb9 Renetta Toro mg5 Annabella Malone cp4 Dario Garcia jg11 Corrections: (The following items were deleted from the chart) 18:27 18:23 Derm: Abscess located on right arm is golf ball sized, has no drainage, has foul mb9 odor, is hot to touch, is red, mb9
[2024-04-28 20:52] VITALS: BP 124/79; TEMP 97.9; O2SAT 95
== END 2024-04-28 20:10 | disposition home or self-care (01) ==
LOC: ER 18:00
DX: S40.021A Contusion of right upper arm, initial encounter (principal); W55.11XA Bitten by horse, initial encounter
CPT/HCPCS: 36415; 80048; 85025; 99284

== ENCOUNTER 2024-04-29 09:00 | Day surgery (SDC) | payer OTHER ==
--- OUTSIDE RECORDS SUMMARY | 2024-04-29 09:03 | XMS REPORT | Continuity of Care Document ---
Author Name Unknown Address [address] [place] [address] [facility] thconnect Address 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 ON 9 [id number] 2023 00:00:00 [employer] I [id number] 2014 00:00:00 Problems Condition Name Condition Details Condition Category Status Onset Date Resolution Date Last Treatment Date Treating Clinician Comments Source Mild persistent asthma (HHS-HCC) Mild persistent asthma (HHS-HCC) Disease Active 05-08 00:00: 00 Kay Secheikh - Externa l Right Pneumothor ax Right Pneumothor ax Disease Active 02-27 00:00: 00 [facility] Right Hemothorax Right Hemothorax Disease Active 02-27 00:00: 00 [facility] Rib fracture (right 3rd through 8th) Rib fracture (right 3rd through 8th) Disease Active 02-27 00:00: 00 [facility] Right Scapula fracture Right Scapula fracture Disease Active 02-27 00:00: 00 [facility] Concussion Concussion Disease Active 02-27 00:00: 00 [facility] Allergies, Adverse Reactions, Alerts Allergy Name Allergy Type Status Severity Reaction(s) Onset Date Inactive Date Treating Clinician Comments Source NO KNOWN ALLERGIE S Drug Class Active [facility] Social History Social Habit Start Date Stop Date Quantity Comments Source Gender identity Salma Nieves - External Sexual orientation Danielle Nieves - External History SDOH Alcohol Std Drinks [facility] History SDOH Alcohol Binge [facility] History SDOH Alcohol Frequency [facility] Alcoholic beverage intake 2024-04-18 00:00:00 2024-04-18 00:00:00 [...] (event) 2022-02-23 00:00:00 2022-03-05 15:31:00 Not sure [facility] Alcohol Comment 2016-01-09 00:00:00 2016-01-09 00:00:00 Daily wine [facility] Sex assigned at 1960 00:00:00 1960 00:00:00 Kay Nieves - External Smoking Status Start Date Stop Date Source Never smoked tobacco Kay Nieves - External Former smoker 2015-02-27 00:00:00 2015-02-27 00:00:00 [facility] Medications Ordered Medication Name Filled Medication Name Start Date Stop Date Current Medication? Ordering Clinician Indication Dosage Frequency Signature (SIG) Comments Components Source Tizanidine HCl 2 MG oral Tablet 04-18 00:00: 00 Yes [id number] 2mg Take 1 tablet (2 mg total) by mouth every 12 hours as needed for muscle spasms. Kay brice Naproxen 500 MG oral Tablet 04-18 00:00: 00 Yes [id number] 500mg Q.5D Take 1 tablet (500 mg total) by mouth 2 times daily as needed (Pain). Kay brice Amoxicillin -Pot Clavulanate 875-125 MG oral Tablet 04-12 00:00: 00 Yes TAKE ONE (1) TABLET(S) BY MOUTH EVERY TWELVE HOURS FOR 10 DAYS. Kay brice Neomycin-Po lymyxin-Dex ameth 3.5-35752-2 .1 ophthalmic Suspension 03-18 00:00: 00 Yes INSTILL ONE (1) DROP INTO LEFT EYE FOUR TIMES A DAY FOR SEVEN DAY. Kay brice Escitalopra m Oxalate 10 MG oral Tablet 02-24 00:00: 00 Yes [id number] 10mg Take 1 tablet (10 mg total) by mouth daily. Kay brice Tizanidine HCl 4 MG oral Tablet 02-24 00:00: 00 04-18 00:00 :00 No [id number] 4mg Q.25D Take 1 tablet (4 mg total) by mouth every 6 hours as needed for muscle spasms. Kay brice LISINOPRIL- HCTZ 10-12.5 MG oral Tablet 02-24 00:00: 00 02-24 00:00 :00 No [id number] 1{tbl} Take 1 tablet by mouth daily. Kay brice Fluticasone -Salmeterol 250-50 MCG/ACT inhalation AEROSOL POWDER, BREATH ACTIVATED 02-23 00:00: 00 Yes [id number] 1{puff} Inhale 1 puff into the lungs 2 times daily Kay Seybold - Externa l Albuterol HFA 108 (90 Base) MCG/ACT IN AERS 4-10 00:00: 00 Yes [id number] 2{puff} Q.25D Inhale 2 puffs into the lungs every 6 hours as needed for wheezing or shortness of breath Kay Seybold - Externa l Albuterol HFA 108 (90 Base) MCG/ACT IN AERS 2-23 00:00: 00 Yes [id number] 2{puff} Q.25D Inhale 2 puffs into the lungs every 6 hours as needed for wheezing or shortness of breath Kay Seybold - Externa l No known medications 01-10 10:03: 36 No [facility] Immunizations Ordered Immunization Name Filled Immunization Name [...] COMPLETE WITH TRANSVAGINAL 2022-03-26 19:32:37 Requisition, Paper [facility] Encounters Start Date/Time End Date/Time Encounter Type Admission Type Attending [facility] Facility Care Department Encounter ID Source 2018-09-16 13:00:00 Inpatient CESAR CARMONA [facility] ILSA Dolan [id number] [facility] 2024-07-25 10:00:00 2024-07-25 10:00:00 Outpatient KAROL MITCHELL [id number] [facility] 2024-05-10 09:00:00 2024-05-10 09:00:00 Outpatient NIKI BROWN [id number] [facility] 2024-04-28 16:00:00 2024-04-28 16:00:00 Outpatient CALVIN MONTELONGO [id number] [facility] 2024-04-21 00:00:00 2024-04-21 00:00:00 Outpatient KAROL MITCHELL [id number] [facility] 2024-04-21 00:00:00 2024-04-21 00:00:00 Outpatient KAY VILLANUEVA [id number] [facility] 2024-04-19 15:25:00 2024-04-19 15:25:00 Outpatient KAY VILLANUEVA [id number] [facility] 2024-04-19 15:20:00 2024-04-19 15:20:00 Outpatient KAY VILLANUEVA [id number] [facility] 2024-04-19 15:15:00 2024-04-19 15:15:00 Outpatient KAY VILLANUEVA [id number] [facility] 2024-04-19 00:00:00 2024-04-19 00:00:00 Outpatient KAROL MITCHELL [id number] [facility] 2024-04-19 00:00:00 2024-04-19 00:00:00 Outpatient KAROL MITCHELL [id number] [facility] 2024-04-19 00:00:00 2024-04-19 00:00:00 Outpatient KAROL MITCHELL [id number] Kelsey Seybold 2024-04-18 10:20:00 2024-04-18 10:20:00 Outpatient KAY KAY [id number] Kay Seybold 2024-04-18 09:50:00 2024-04-18 09:50:00 Outpatient KAY KAY [id number] Kay Seybold 2024-04-18 08:45:00 2024-04-18 08:45:00 Outpatient MITCHELLKAROL MANZANARES KAY VILLANUEVA [id number] Kay Seybold 2024-04-18 00:00:00 2024-04-18 00:00:00 Outpatient KAY KAY [id number] Kay Seybold 2024-04-07 09:15:00 2024-04-07 09:15:00 Outpatient KAY VILLANUEVA [id number] Kay Seybold 2024-04-04 09:15:00 2024-04-04 09:15:00 Outpatient KAY VILLANUEVA [id number] Kay Seybold 2024-03-15 09:00:00 2024-03-15 09:00:00 Outpatient KIRSTIN WHITE [id number] Kay Seybold 2024-03-09 16:00:00 2024-03-09 16:00:00 Outpatient LEE MARTÍNEZ [id number] Kay Seybold 2024-03-03 00:00:00 2024-03-03 00:00:00 Outpatient KIRSTIN WHITE [id number] Kay Seybold 2024-02-26 00:00:00 2024-02-26 00:00:00 Outpatient KIRSTIN WHITE [id number] Kay Seybold 2024-02-25 11:25:00 2024-02-25 11:25:00 Outpatient SHAYY VILLANUEVA [id number] Kay Seybold 2024-02-25 10:30:00 2024-02-25 10:30:00 Outpatient KIRSTIN WHITE [id number] Kay Seybold 2023-06-17 10:15:00 2023-06-17 10:15:00 Outpatient KAY VILLANUEVA [id number] Kay Conroydolores 2023-05-08 10:00:00 2023-05-08 10:00:00 Outpatient LOKESH RIBEIRO KAY VILLANUEVA [id number] Kay Ezequiel 2023-05-04 09:30:00 2023-05-04 09:30:00 Outpatient JUAN RAMONHEATHERSMITHACHYNA VILLANUEVA [id number] Kay Conroydolores 2023-03-09 00:00:00 2023-03-09 00:00:00 Outpatient MD KAY CURTIS [id number] [facility] 2023-02-23 10:00:00 2023-02-23 10:00:00 Outpatient LOKESH RIBEIRO [id number] [facility] 2023-02-11 00:00:00 2023-02-11 00:00:00 Outpatient MD KAY CURTIS [id number] [facility] 2023-02-09 10:30:00 2023-02-09 10:30:00 Outpatient PLAB KAY VILLANUEVA [id number] [facility] 2023-01-26 11:00:00 2023-01-26 11:00:00 Outpatient PLAB KAY VILLANUEVA [id number] [facility] 2023-01-09 11:00:00 2023-01-09 11:00:00 Outpatient JUAN RAMONHEATHERLOKESH KAY VILLANUEVA [id number] Kay dolores 2023-01-08 08:30:00 2023-01-08 08:30:00 Outpatient GEMASMITHACHYNA VILLANUEVA [id number] [facility] 2023-01-05 00:00:00 2023-01-05 00:00:00 Outpatient KIRSTIN WHITE [id number] Kay Seybold 2023-01-02 13:45:00 2023-01-02 13:45:00 Outpatient KAY VILLANUEVA [id number] Kay Seybdolores 2023-01-01 12:40:00 2023-01-01 12:40:00 Outpatient KAY [facility]ILLANUEVA [id number] [facility] 2023-01-01 00:00:00 2023-01-01 00:00:00 Outpatient KIRSTIN WHITE [id number] Kay Nieves 2022-12-29 08:00:00 2022-12-29 08:00:00 Outpatient KIRSTIN WHITE [id number] Kay Nieves 2022-03-26 13:25:57 2022-03-26 23:59:00 Outpatient R RADIOLOGY [facility] [id number] [facility] 2022-03-26 13:25:57 2022-03-26 23:59:00 Hospital Encounter Radiology [facility] [id number] [facility] 2018-10-28 12:40:00 2018-10-28 16:20:00 Outpatient Kelsi MADISON CESAR [facility] HEATHERPRIYABATOOL Dolan [id number] [facility] 2018-04-08 11:29:00 2018-04-08 15:18:00 Outpatient CESAR CARMONA [facility] ILSA C [id number] [facility] Notes Date/Time Note Provider Source 2024-04-18 09:00:58 [id number]:00:58F ormatting of this note is different from the original.Chief ComplaintPatient presents withBack PainLower backHx of PT, injection and 1 [place] [address]-4Scidq [id number]:47:21Nurse [id number] for patient [id number] NoteLNNARRATIVEFormatted C-CDA narrative textKAYJosyOhiohealth Shelby Hospital2727 [facility] [id number] [facility]"
[2024-04-29] MEDS ORDERED: ONDANSETRON 4 MG/2 ML VIAL ONE ×2 (09:50→12:52)
[2024-04-29] MEDS ORDERED: NA CHLORIDE 0.9% 1,000 ML ONE (09:50)
[2024-04-29] MEDS ORDERED: FENTANYL CITR 100 MCG/2 ML ONE ×2 (09:50→12:13)
[2024-04-29] MEDS ORDERED: NA CHLORIDE 0.9% 500 ML ONE (09:51)
[2024-04-29] MEDS ORDERED: NA CHLORIDE 0.9% 100 ML ONE (09:51)
[2024-04-29] MEDS ORDERED: CEFAZOLIN SODIUM 2 GM/VIAL ONE (09:51)
--- NOTE | 2024-04-29 09:55 | ER ---
Nurse's Notes [facility] Name: Francisca Wolfe Age: 63 yrs Sex: Female : 1960 Arrival Date: 04/29/2024 Time: 09:00 Bed 6 Private MD: Diagnosis: Bitten by horse, subsequent encounter-infected , 6x6cm infected hematoma Presentation: 04/29 09:11 Chief complaint: Bit by horse on right upper arm 2 weeks ago, concerned it is not hb getting better. Coronavirus screen: At this time, the client does not indicate any symptoms associated with coronavirus-19. Ebola Screen: No symptoms or risks identified at this time. Initial Sepsis Screen: Does the patient meet any 2 criteria? No. Patient's initial sepsis screen is negative. Does the patient have a suspected source of infection? No. Patient's initial sepsis screen is negative. Risk Assessment: Do you want to hurt yourself or someone else? Patient reports no desire to harm self or others. Onset of symptoms was April 29, 2024. 09:11 Method Of Arrival: Ambulatory hb 09:11 Acuity: EMILEE 3 hb Triage Assessment: 09:13 General: Appears in no apparent distress. Behavior is calm, cooperative. Pain: Pain hb currently is 3 out of 10 on a pain scale. Neuro: Level of Consciousness is awake, alert, obeys commands, Oriented to person, place, time, situation. Cardiovascular: Patient's skin is warm and dry. Respiratory: Respiratory effort is even, unlabored, Respiratory pattern is regular, symmetrical. Injury Description: Bite sustained to right bicep caused by Horse is from animal, was sustained 2 weeks ago. Historical: - Allergies: 09:13 No Known Drug Allergies; hb - PMHx: 09:13 chronic back pain; hb - PSHx: 09:13 back (c ); hb - Immunization history:: Adult Immunizations up to date. - Infectious Disease History:: Denies. - Social history:: Smoking status: Patient denies any tobacco usage or history of. - Family history:: not pertinent. Screenin:[address] [facility] ED Fall Risk Assessment (Adult) History of falling in the last 3 months, aa5 including since admission No falls in past 3 months (0 pts) Confusion or Disorientation No (0 pts) Intoxicated or Sedated No (0 pts) Impaired Gait No (0 pts) Mobility Assist Device Used No (0 pt) Altered Elimination No (0 pt) Score/Fall Risk Level 0 - 2 = Low Risk Oriented to surroundings, Maintained a safe environment, Educated pt \T\ family on fall prevention, incl call for assistance when getting out of bed. Abuse screen: Denies threats or abuse. Nutritional screening: No deficits noted. Tuberculosis screening: No symptoms or risk factors identified. Assessment: 09:35 General: Appears comfortable, Behavior is calm, cooperative. Pain: Complains of pain in aa5 right upper arm Pain currently is 3 out of 10 on a pain scale. Quality of pain is described as aching. Neuro: Level of Consciousness is awake, alert, obeys commands, Oriented to person, place, time, situation. Cardiovascular: Patient's skin is warm and dry. Respiratory: Airway is patent Respiratory effort is even, unlabored, Respiratory pattern is regular, symmetrical. GI: No signs and/or symptoms were reported involving the gastrointestinal system. : No signs and/or symptoms were reported regarding the genitourinary system. EENT: No signs and/or symptoms were reported regarding the EENT system. Derm: Skin is pink, warm \T\ dry. Abscess that is softball sized and dark purple in color noted to right upper arm, no drainage noted to site. Yellowish/greenish bruising noted to right upper arm. Musculoskeletal: Range of motion: intact in all extremities. 10:00 Reassessment: Patient is alert, oriented x 3, equal unlabored respirations, skin aa5 warm/dry/pink. 11:30 Reassessment: Patient is alert, oriented x 3, equal unlabored respirations, skin aa5 warm/dry/pink. Vital Signs: 09:11 BP 161 / 96; Pulse 75; Resp 16; Temp 97.7(O); Pulse Ox 100% on R/A; Weight 63.5 kg; hb Height 5 ft. 2 in. ; Pain 3/10; 10:00 BP 136 / 84; Pulse 79; Resp 16 S; Pulse Ox 97% on R/A; aa5 11:00 BP 136 / 78; Pulse 72; Resp 16 S; Pulse Ox 100% on R/A; aa5 09:11 Body Mass Index 25.61 (63.50 kg, 157.48 cm) hb 09:11 Pain Scale: Adult hb ED Course: 09:01 Patient arrived in ED. mr 09:10 Oneal Waters MD is Attending Physician. kartik 09:13 Triage completed. hb 09:15 Deidra Sow, RN is Primary Nurse. aa5 09:15 Arm band placed on. hb 09:35 Patient has correct armband on for positive identification. Bed in low position. Call aa5 light in reach. Side rails up X 1. 09:50 Inserted saline lock: 22 gauge in left antecubital area, using aseptic technique. aa5 ,using aseptic technique. Inserted by EMILEE Bishop. 09:52 Tam Carpenter MD is Hospitalizing Provider. kartik 09:56 EKG done, by ED staff, reviewed by Oneal Waters MD. jg11 10:17 Chest Single View XRAY In Process Unspecified. EDMS 11:30 No provider procedures requiring assistance completed. Patient admitted, IV remains in aa5 place. Administered Medications: 10:03 Drug: NS 0.9% IV 1000 ml IV at 125 ml/hr continuous Route: IV; Rate: 125 ml/hr; Site: aa5 left antecubital; 11:30 Follow up: IV Status: Infusion continued upon admission aa5 10:03 Drug: NS 0.9% IV 500 ml IV at bolus once Route: IV; Rate: bolus; Site: left antecubital;aa5 10:33 Follow up: IV Status: Completed infusion; IV Intake: 500ml aa5 10:03 Drug: ceFAZolin IVPB 2 grams IVPB once over 30 mins; (mix in 100 mL NS) Route: IVPB; rs5 Infused Over: 30 mins; Site: right antecubital; 10:33 Follow up: Response: No adverse reaction; IV Status: Completed infusion aa5 10:03 Drug: fentaNYL (PF) IVP 25 mcg IVP once Route: IVP; Site: left antecubital; aa5 10:15 Follow up: Response: No adverse reaction aa5 10:03 Drug: Ondansetron IVP 4 mg IVP once; over 2 minutes Route: IVP; Site: left antecubital; aa5 10:15 Follow up: Response: No adverse reaction aa5 Medication: 09:43 VIS not applicable for this client. aa5 Intake: 10:33 IV: 500ml; Total: 500ml. aa5 Outcome: 09:54 Decision to Hospitalize by Provider. kartik 11:30 Patient left the ED. aa5 11:30 Admitted to OR accompanied by nurse, via wheelchair, with chart, aa5 11:30 Condition: stable 11:30 Instructed on the need for admit, Signatures: Dispatcher [employer] EDOneal Garcia MD MD cha Rivera, Nida, Reg Reg mr SowDeidra, RN RN aa5 Bridgette Davey RN RN Willi Castro RN RN rs5 Dario Garcia jg11 Corrections: (The following items were deleted from the chart) 11:44 11:41 Patient left the ED. aa5 aa5
--- NOTE | 2024-04-29 09:55 | EDPHYS ---
Physician Documentation [facility] Name: Francisca Wolfe Age: 63 yrs Sex: Female : 1960 Arrival Date: 04/29/2024 Time: 09:00 Bed 6 Private MD: ED Physician Oneal Waters HPI: 04/29 09:46 This 63 yrs old Female presents to ER via Ambulatory with complaints of Arm kartik swelling from horse bite x 2wks. 09:46 The patient or guardian complains of decreased range of motion, injury, pain. The kartik complaints affect the right bicep. Context: The problem was sustained outdoors. Onset: The symptoms/episode began/occurred 3 day(s) ago. Treatment prior to arrival includes: no previous treatment. Modifying factors: The symptoms are alleviated by remaining still, the symptoms are aggravated by movement. Associated signs and symptoms: The patient has no apparent associated signs or symptoms. Severity of symptoms: At their worst the symptoms were moderate, in the emergency department the symptoms are unchanged. The patient has not experienced similar symptoms in the past. Historical: - Allergies: 09:13 No Known Drug Allergies; hb - PMHx: 09:13 chronic back pain; hb - PSHx: 09:13 back (c ); hb - Immunization history:: Adult Immunizations up to date. - Infectious Disease History:: Denies. - Social history:: Smoking status: Patient denies any tobacco usage or history of. - Family history:: not pertinent. ROS: 09:46 Constitutional: Negative for fever, chills, and weight loss, Eyes: Negative for injury, kartik pain, redness, and discharge, ENT: Negative for injury, pain, and discharge, Neck: Negative for injury, pain, and swelling, Cardiovascular: Negative for chest pain, palpitations, and edema, Respiratory: Negative for shortness of breath, cough, wheezing, and pleuritic chest pain, Abdomen/GI: Negative for abdominal pain, nausea, vomiting, diarrhea, and constipation, Back: Negative for injury and pain, : Negative for injury, bleeding, discharge, and swelling, Neuro: Negative for headache, weakness, numbness, tingling, and seizure, Psych: Negative for depression, anxiety, suicide ideation, homicidal ideation, and hallucinations, Allergy/Immunology: Negative for hives, rash, and allergies, Endocrine: Negative for neck swelling, polydipsia, polyuria, polyphagia, and marked weight changes, Hematologic/Lymphatic: Negative for swollen nodes, abnormal bleeding, and unusual bruising, 09:46 MS/extremity: Positive for decreased range of motion, erythema, pain, swelling, tenderness, of the right bicep, Exam: 09:46 Constitutional: This is a well developed, well nourished patient who is awake, alert, kartik and in no acute distress. Head/Face: Normocephalic, atraumatic. Eyes: Pupils equal round and reactive to light, extra-ocular motions intact. Lids and lashes normal. Conjunctiva and sclera are non-icteric and not injected. Cornea within normal limits. Periorbital areas with no swelling, redness, or edema. ENT: Nares patent. No nasal discharge, no septal abnormalities noted. Tympanic membranes are normal and external auditory canals are clear. Oropharynx with no redness, swelling, or masses, exudates, or evidence of obstruction, uvula midline. Mucous membranes moist. Neck: Trachea midline, no thyromegaly or masses palpated, and no cervical lymphadenopathy. Supple, full range of motion without nuchal rigidity, or vertebral point tenderness. No Meningismus. Chest/axilla: Normal chest wall appearance and motion. Nontender with no deformity. No lesions are appreciated. Cardiovascular: Regular rate and rhythm with a normal S1 and S2. No gallops, murmurs, or rubs. Normal PMI, no JVD. No pulse deficits. Respiratory: Lungs have equal breath sounds bilaterally, clear to auscultation and percussion. No rales, rhonchi or wheezes noted. No increased work of breathing, no retractions or nasal flaring. Abdomen/GI: Soft, non-tender, with normal bowel sounds. No distension or tympany. No guarding or rebound. No evidence of tenderness throughout. Back: No spinal tenderness. No costovertebral tenderness. Full range of motion. Female : Normal external genitalia. Skin: Warm, dry with normal turgor. Normal color with no rashes, no lesions, and no evidence of cellulitis. Neuro: Awake and alert, GCS 15, oriented to person, place, time, and situation. Cranial nerves II-XII grossly intact. Motor strength 5/5 in all extremities. Sensory grossly intact. Cerebellar exam normal. Normal gait. Psych: Awake, alert, with orientation to person, place and time. Behavior, mood, and affect are within normal limits. 09:46 ECG was reviewed by the Attending Physician. 09:46 Musculoskeletal/extremity: Extremities: grossly normal except: decreased ROM, erythema, pain, swelling, tenderness, ROM: intact in all extremities, full active range of motion, full passive range of motion, Circulation is intact in all extremities. Sensation intact. Compartment Syndrome exam of affected extremity: is normal. Weight bearing: able to fully bear weight, DVT Exam: negative Homans' sign noted on exam, no appreciated bluish discoloration, pain, swelling, tenderness, erythema, increased warmth, 10:07 ECG was reviewed by the Attending Physician. [facility] Vital Signs: 09:11 BP 161 / 96; Pulse 75; Resp 16; Temp 97.7(O); Pulse Ox 100% on R/A; Weight 63.5 kg; hb Height 5 ft. 2 in. ; Pain 3/10; 10:00 BP 136 / 84; Pulse 79; Resp 16 S; Pulse Ox 97% on R/A; aa5 11:00 BP 136 / 78; Pulse 72; Resp 16 S; Pulse Ox 100% on R/A; aa5 09:11 Body Mass Index 25.61 (63.50 kg, 157.48 cm) hb 09:11 Pain Scale: Adult hb MDM: 09:10 Patient medically screened. kartik 09:50 Differential diagnosis: closed fracture, contusion, abrasion, tendonitis. Data [facility] reviewed: vital signs, nurses notes, lab test result(s), CBC, electrolytes, hepatic panel, EKG. Consideration of Admission/Observation Escalation of care including admission/observation considered. I considered the following discharge prescriptions or medication management in the emergency department Medications were administered in the Emergency Department. See MAR. Independent interpretation of the following test(s) in the Emergency Department EKG: See my EKG interpretation above. Test considered but Not performed: Ultrasound no usg. Historians other than the Patient: pt well informed. Care significantly affected by the following chronic conditions: cbp. Counseling: I had a detailed discussion with the patient and/or guardian regarding the historical points, exam findings, and any diagnostic results supporting the discharge/admit diagnosis, lab results, radiology results, the need for further work-up and treatment in the hospital. 04/29 09:46 Order name: PT-INR [facility] 04/29 10:03 Order name: Basic Metabolic Panel EDMS 04/29 10:03 Order name: Basic Metabolic Panel EDKY 04/29 10:03 Order name: CBC with Automated Diff EDMS 04/29 10:03 Order name: CBC with Automated Diff EDMS 04/29 09:45 Order name: Chest Single View XRAY [facility] 04/29 09:45 Order name: EKG; Complete Time: 09:46 [facility] 04/29 09:45 Order name: EKG - Nurse/Tech; Complete Time: 09:56 [facility] 04/29 09:46 Order name: NPO; Complete Time: 09:47 [facility] EC:07 Rate is 79 beats/min. Rhythm is regular. QRS [place] is Normal. [place] interval is normal. QRS kartik interval is normal. QT interval is normal. No Q waves. T waves are Normal. No ST changes noted. Clinical impression: Normal ECG and No evidence of ischemia. Interpreted by me. Reviewed by me. Administered Medications: 10:03 Drug: NS 0.9% IV 1000 ml IV at 125 ml/hr continuous Route: IV; Rate: 125 ml/hr; Site: aa left antecubital; 11:30 Follow up: IV Status: Infusion continued upon admission aa5 10:03 Drug: NS 0.9% IV 500 ml IV at bolus once Route: IV; Rate: bolus; Site: left antecubital;aa5 10:33 Follow up: IV Status: Completed infusion; IV Intake: 500ml aa5 10:03 Drug: ceFAZolin IVPB 2 grams IVPB once over 30 mins; (mix in 100 mL NS) Route: IVPB; rs5 Infused Over: 30 mins; Site: right antecubital; 10:33 Follow up: Response: No adverse reaction; IV Status: Completed infusion aa5 10:03 Drug: fentaNYL (PF) IVP 25 mcg IVP once Route: IVP; Site: left antecubital; aa5 10:15 Follow up: Response: No adverse reaction aa5 10:03 Drug: Ondansetron IVP 4 mg IVP once; over 2 minutes Route: IVP; Site: left antecubital; aa5 10:15 Follow up: Response: No adverse reaction aa5 Disposition Summary: 04/29/24 09:54 Hospitalization Ordered Notes: Hospitalization Status: Observation kartik Provider: Tam Carpenter cha Location: DAY SURGERY OTHER kartik Condition: Stable kartik Problem: new kartik Symptoms: have improved kartik Bed/Room Type: Standard [facility] Room Assignment: kartik Diagnosis - Bitten by horse, subsequent encounter - infected , 6x6cm infected hematoma kartik Forms: - Medication Reconciliation Form kartik - SBAR form kartik - Leadership Thank You Letter kartik Signatures: Dispatcher [employer] EDOneal Garcia MD MD cha Calderon, Audri RN RN aa5 Bridgette aDvey RN RN Willi Castro RN RN rs5
[2024-04-29] MEDS ORDERED: NA CHLORIDE 0.9% 1,000 ML IV SCH (10:00)
[2024-04-29] MEDS ORDERED: ONDANSETRON 4 MG/2 ML VIAL IV PRN (10:00)
[2024-04-29 10:10] LABS: PT Prothrombin Time 10.9 SECONDS (9.5-12.5); Protime INR 0.99
[2024-04-29] MEDS ORDERED: ACETAMINOPHEN 325 MG TABLET PO PRN (10:13)
[2024-04-29] MEDS ORDERED: MORPHINE 4 MG/ML SYR IV PRN (10:13)
--- NOTE | 2024-04-29 10:51 | RAD REPORT ---
EXAM DESCRIPTION: Joyce Single View04/29/2024 10:15 am CLINICAL HISTORY: Preop COMPARISON: 2014 FINDINGS: A 6 millimeter nodular density mid right lung. Remaining lungs appear clear of acute infiltrate. The heart is normal size Old right rib fractures IMPRESSION: A 6 millimeter nodular density mid right lung may represent a pulmonary nodule or conflu ence of ribs and vessels. A followup PA and lateral chest series in 3 months recommended for re-evalu ation
[2024-04-29] MEDS ORDERED: AMPICILLIN/SULBACT 3 GM in NA CHLORIDE 0.9% 100 ML IV SCH (11:00)
[2024-04-29] MEDS ORDERED: CEFAZOLIN 1 GM in NA CHLORIDE 0.9% 50 ML IVPB SCH (12:00)
[2024-04-29] MEDS ORDERED: LIDOCAINE 2% MPF 5 ML VIAL ONE (12:12)
[2024-04-29] MEDS ORDERED: propofoL 200 MG/20 ML VIAL IV ONE (12:13)
[2024-04-29] MEDS ORDERED: MIDAZOLAM HCL 2 MG/2 ML INJ ONE (12:13)
--- NOTE | 2024-04-29 12:47 | P.HP ---
Date of Service: 04/29/24 PC: This 63-year-old female presented to the emergency room with severe pain in her right upper arm for diagnosis and treatment. HPC: About 2 weeks ago patient was nipped by her horse. Shortly thereafter noticed that her arm has swollen to about the size of a softball. It has come down to a small amount, but still persist and causing increasing pain and tenderness. PSHx: NAD PMHx: Reviewed Social Hx: No known drug allergies Sys R: States she is otherwise a healthy lady O/E: Awake alert vital signs are stable HEENT: Not jaundiced Chest: Air entry equal bilaterally Abd: NAD [place]: On the right anterolateral aspect of the forearm this patient has a large hematoma measuring approximately 6 cm x 5 cm in size. There are some abrasions to the surface. Tender to the touch. Impression: Persistent hematoma status post horse bite Plan: I will take her to the operating room for incision, drainage, sharp debridement of this wound. The risks of the procedure have been discussed. The possibility of bleeding, infection, seroma formation and need for further surgeries and procedures was described. She understands and wants us to proceed.
[2024-04-29] MEDS ORDERED: dexAMETHasone 4 MG/ML VIAL ONE (12:53)
[2024-04-29] MEDS: BUPIVACAINE 0.5% PF 10 ML VIAL ONE (13:00)
--- NOTE | 2024-04-29 13:23 | P.OP ---
Preoperative diagnosis: Hematoma right upper arm Postoperative diagnosis: The same Primary procedure: Incision, drainage, and sharp debridement of hematoma Anesthesia: General Estimated blood loss: Less than 10 cc Specimen: Blood clots removed but not sent Operative Technique: The patient brought the operating room placed supine on the table. After the induction of adequate anesthesia, attention was turned towards the right arm. It was prepped and draped in usual aseptic manner. 0.25% Marcaine was now injected at the lower end of this large 6 cm x 5 cm hematoma. A skin incision was made at the base of this. We were now able to place a Yankauer suction and suck out a considerable amount of clot that also showed early organization with white fibrin throughout. The vanegas of the hematoma were now surgically curetted back to clean viable tissue. A probe hemostat was placed into her inferior incision and brought up superiorly as far as we could. A counterincision was made on top of this through which we passed 1/4 inch Henrry drain. The drain was now pinned on itself to allow for adequate drainage during the postoperative period to prevent any reaccumulation of hematoma, and trying encouraged the skin to adhere to the underlying tissue. At the end of the procedure she was in a stable condition was sent to the recovery room. Needle sponge instrument count were correct. 1 [place] drain was placed. A sterile dressing was then applied.
[2024-04-29 14:24] VITALS: BP 150/80; TEMP 98.9; O2SAT 99
--- NOTE | 2024-05-02 15:04 | EKG ---
Test Date: 2024-04-29 Test Time: 09:53:49 [employer]: SANDY MEASUREMENT RESULTS: Intervals: Rate: 79 DC: 174 QRSD: 84 QT: 396 QTc: 454 [place]: P: 38 DC: 174 QRS: 56 T: 50 INTERPRETIVE STATEMENTS: Normal sinus rhythm Normal ECG Compared to ECG 12/06/2001 09:25:00 No significant changes Electronically Signed On 05-02-24 14:54:51 CDT by Anastacio Watt
== END 2024-04-29 14:25 | disposition home or self-care (01) ==
LOC: ER 09:00 → OR 09:58
PROVIDERS: ATTEND Surgery
PROC: 0J9D0ZZ Drainage of Right Upper Arm Subcutaneous Tissue and Fascia, Open Approach (ICD-10-PCS; principal; 2024-04-29 12:00)
DX: S40.021A Contusion of right upper arm, initial encounter (principal)
CPT/HCPCS: 96365; 96361; 93005; 36415; 85610; 71045; 96375; 99285; 10140; J2704; J1100; J2001; J2250; J3010 ×2; J2405 ×2; J7040; J7030

== ENCOUNTER 2024-05-12 16:38 | Emergency (ER) | payer OTHER ==
--- OUTSIDE RECORDS SUMMARY | 2024-05-12 16:41 | XMS REPORT | Continuity of Care Document ---
Author Name Unknown Address [address] [place] [address] [facility] thconnect Address [address] [place] [address] Care Team Providers Care Registered Health Nurse Name Role Phone PCP, PATIENT DOES NOT HAVE A Primary Care Physic margareth Unavailable DR CESAR MADISON Attending Clinician Unavailable KAROL MITCHELL Attending Clinician Unavailab INKI Melendez Attending Clinician Unava CALVIN Ramirez Attending [...] Source [employer] MP [facility] [address] 73 ON 9 [id number] 2023 00:00:00 [employer] I [id number] 2014 00:00:00 Problems Condition Name Condition Details Condition Category Status Onset Date Resolution Date Last Treatment Date Treating Clinician Comments Source Mild persistent asthma (HHS-HCC) Mild persistent asthma (HHS-HCC) Disease Active 05-08 00:00: 00 Kay Secheikh - Externa l Right Pneumothor ax Right Pneumothor ax Disease Active 02-27 00:00: 00 [facility] Right Hemothorax Right Hemothorax Disease Active 02-27 00:00: 00 [facility] Rib fracture (right 3rd through 8th) Rib fracture (right 3rd through 8th) Disease Active 02-27 00:00: 00 [facility] Right Scapula fracture Right Scapula fracture Disease Active 02-27 00:00: 00 [facility] Concussion Concussion Disease Active 02-27 00:00: 00 [facility] Allergies, Adverse Reactions, Alerts Allergy Name Allergy Type Status Severity Reaction(s) Onset Date Inactive Date Treating Clinician Comments Source NO KNOWN ALLERGIE S Drug Class Active [facility] Social History Social Habit Start Date Stop Date Quantity Comments Source Gender identity Salma Nieves - External Sexual orientation Danielle Nieves - External History SDOH Alcohol Std Drinks [facility] History SDOH Alcohol Binge [facility] History SDOH Alcohol Frequency [facility] Alcoholic beverage intake 2024-05-10 00:00:00 2024-05-10 00:00:00 Current drinker of alcohol (finding) Kay Nieves - External History of Social function 2023-02-23 00:00:00 2023-02-23 00:00:00 Kay Nieves - External Alcohol intake 2023-02-23 00:00:00 2023-02-23 00:00:00 Current drinker of alcohol (finding) Kay Nieves - External Tobacco use and exposure 2022-12-29 00:00:00 2022-12-29 00:00:00 Smokeless tobacco non-user Kay Nieves - External Exposure to SARS-CoV-2 (event) 2022-02-23 00:00:00 2022-03-05 15:31:00 Not sure [facility] Alcohol Comment 2016-01-09 00:00:00 2016-01-09 00:00:00 Daily wine [facility] Sex assigned at 1960 00:00:00 1960 00:00:00 Kay Nieves - External Smoking Status Start Date Stop Date Source Never smoked tobacco Kay Nieves - External Former smoker 2015-02-27 00:00:00 2015-02-27 00:00:00 [facility] Medications Ordered Medication Name Filled Medication Name Start Date Stop Date Current Medication? Ordering Clinician Indication Dosage Frequency Signature (SIG) Comments Components Source Tizanidine HCl 2 MG oral Tablet 04-18 00:00: 00 Yes [id number] 2mg Take 1 tablet (2 mg total) by mouth every 12 hours as needed for muscle spasms. Kay brice Naproxen 500 MG oral Tablet 04-18 00:00: 00 Yes [id number] 500mg Q.5D Take 1 tablet (500 mg total) by mouth 2 times daily as needed (Pain). Kay brice Amoxicillin -Pot Clavulanate 875-125 MG oral Tablet 04-12 00:00: 00 Yes TAKE ONE (1) TABLET(S) BY MOUTH EVERY TWELVE HOURS FOR 10 DAYS. Kay brice Neomycin-Po lymyxin-Dex ameth 3.5-66578-7 .1 ophthalmic Suspension 03-18 00:00: 00 Yes INSTILL ONE (1) DROP INTO LEFT EYE FOUR TIMES A DAY FOR SEVEN DAY. Kay brice Escitalopra m Oxalate 10 MG oral Tablet 02-24 00:00: 00 Yes [id number] 10mg QD Take 1 tablet (10 mg total) by mouth daily. Kay brice Tizanidine HCl 4 MG oral Tablet 02-24 00:00: 00 04-18 00:00 :00 No [id number] 4mg Q.25D Take 1 tablet (4 mg total) by mouth every 6 hours as needed for muscle spasms. Kay brice LISINOPRIL- HCTZ 10-12.5 MG oral Tablet 02-24 00:00: 00 02-24 00:00 :00 No [id number] 1{tbl} Take 1 tablet by mouth daily. Kay brice Fluticasone -Salmeterol 250-50 MCG/ACT inhalation AEROSOL POWDER, BREATH ACTIVATED 02-23 00:00: 00 Yes [id number] 1{puff} Q.5D Inhale 1 puff into the lungs 2 times daily Kay Seybold - Externa l Albuterol HFA 108 (90 Base) MCG/ACT IN AERS 4-10 00:00: 00 Yes [id number] 2{puff} Q.25D Inhale 2 puffs into the lungs every 6 hours as needed for wheezing or shortness of breath Kay Seybold - Externa l Albuterol HFA 108 (90 Base) MCG/ACT IN AERS 2-23 00:00: 00 Yes [id number] 2{puff} Q.25D Inhale 2 puffs into the lungs every 6 hours as needed for wheezing or shortness of breath Kay Seybold - Externa l No known medications 01-10 10:03: 36 No [facility] Immunizations Ordered Immunization Name Filled [...] Name Observation Time Observation Value Comments S sofia Systolic blood pressure 2024-04-18 13:56:00 160 mm[Hg] Kay Conroyybo ld - External Diastolic blood pressure 2024-04-18 13:56:00 88 mm[Hg] Kay Seybo ld - External Body height 2024-04-18 13:56:00 157.5 cm Salma ey Seybold - External Body weight 2024-04-18 13:56:00 [...] External Heart rate 2023-02-23 14:51:00 69 /min Kelse y Seybold - External Body temperature 2023-02-23 [...] Pulse oximetry 2023-01-08 14:14:00 96 /min Kay Conroyybo ld - External Diastolic blood pressure 2022-12-29 14:06:00 76 mm[Hg] Kay Seybo ld - External Heart rate 2022-12-29 14:06:00 78 /min Kjse y Seybold - External Body temperature 2022-12-29 [...] COMPLETE WITH TRANSVAGINAL 2022-03-26 19:32:37 Requisition, Paper [facility] Encounters Start Date/Time End Date/Time Encounter Type Admission Type Attending Clinicians Care Facility Care Department Encounter ID Source 2018-09-16 13:00:00 Inpatient CESAR CARMONA [facility] ILSA Dolan [id number] [facility] 2024-07-25 10:00:00 2024-07-25 10:00:00 Outpatient [facility] MITCHELL [id number] [facility]24-[facility]-10 09:00:00 2024-05-10 09:00:00 Outpatient NIKI BROWN [id number] [facility] 2024-04-28 16:00:00 2024-04-28 16:00:00 Outpatient CALVIN MONTELONGO [id number] [facility] 2024-04-21 00:00:00 2024-04-21 00:00:00 [id number]:00:00 2024-04-21 00:00:00 Out[facility] KAY HALL [id number] [facility] 2024-04-19 15:25:00 2024-04-19 15:25:00 Outpatient KAY HALL [id number] [facility] 2024-04-19 15:20:00 2024-04-19 15:20:00 [facility] [id number] [facility] 15:15:00 2024-04-19 15:15:00 Outpatient KAY HALL [id number] Kay [facility]olores 2024-04-19 00:00:00 2024-04-19 00:00:00 [id number] [facility] 00:00:00 2024-04-19 00:00:00 Outpatient KAROL MITCHELL [id number] [facility] 2024-04-19 00:00:2024-04-19 00:00:00 Outpatient KAROL MITCHELL KAY [id number] Kay Seybold 2024-04-18 10:20:00 2024-04-18 10:20:00 Outpatient KAY KAY [id number] Kay Seybold 2024-04-18 09:50:00 2024-04-18 09:50:00 Outpatient KAY KAY [id number] Kay Seybold 2024-04-18 08:45:00 2024-04-18 08:45:00 Outpatient KAROL MITCHELL KAY [id number] Kay Seybold 2024-04-18 00:00:00 2024-04-18 00:00:00 Outpatient KAY HALL [id number] Kay Seybold 2024-04-07 09:15:00 2024-04-07 09:15:00 Outpatient KAY HALL [id number] Kay Seybold 2024-04-04 09:15:00 2024-04-04 09:15:00 Outpatient KAY HALL [id number] Kay Seybold 2024-03-15 09:00:00 2024-03-15 09:00:00 Outpatient KIRSTIN WHITE [id number] Kya Seybold 2024-03-09 16:00:00 2024-03-09 16:00:00 Outpatient LEE AMRTÍNEZ [id number] Kay Seybold 2024-03-03 00:00:00 2024-03-03 00:00:00 Outpatient KIRSTIN WHITE [id number] Kay Seybold 2024-02-26 00:00:00 2024-02-26 00:00:00 Outpatient KIRSTIN WHITE [id number] Kay Seybold 2024-02-25 11:25:00 2024-02-25 11:25:00 Outpatient SHAYY HALL [id number] Kay Seybold 2024-02-25 10:30:00 2024-02-25 10:30:00 Outpatient KIRSTIN WHITE [id number] Kay Seybold 2023-06-17 10:15:00 2023-06-17 10:15:00 Outpatient KAY HALL [id number] Kay Seybdolores 2023-05-08 10:00:00 2023-05-08 10:00:00 Outpatient LOKESH RIBEIRO KAY HALL [id number] Kay [facility] 2023-05-04 09:30:00 2023-05-04 09:30:00 Outpatient [facility]OKESH RIBEIR[facility] [id number] [facility] 2023-03-09 00:00:00 2023-03-09 00:00:00 Outpatient MD KAY CURTIS [id number] [facility] 2023-02-23 10:00:00 2023-02-23 10:00:00 Outpatient GEMA LOKESH HALL [id number] [facility] 2023-02-11 00:00:00 2023-02-11 00:00:00 Outpatient MD KAY CURTIS [id number] [facility] 2023-02-09 10:30:00 2023-02-09 10:30:00 Outpatient PLAB KAY HALL [id number] [facility] 2023-01-26 11:00:00 2023-01-26 11:00:00 Outpatient PLAB KAY HALL [id number] [facility] 2023-01-09 11:00:00 2023-01-09 11:00:00 Outpatient GEMA LOKEHS HALL [id number] [facility] 2023-01-08 08:30:00 2023-01-08 08:30:00 Outpatient GEMA LOKESH HALL [id number] [facility] 2023-01-05 00:00:00 2023-01-05 00:00:00 Outpatient KIRSTIN WHITE [id number] Kay Seybold 2023-01-02 13:45:00 2023-01-02 13:45:00 Outpatient KAY HALL [id number] Kay Seybdolores 2023-01-01 12:40:00 2023-01-01 12:40:00 Outpatient KAY HALL [id number] Kay Nieves 2023-01-01 00:00:00 2023-01-01 00:00:00 Outpatient KIRSTIN WHITE [id number] Kay Nieves 2022-12-29 08:00:00 2022-12-29 08:00:00 Outpatient KIRSTIN WHITE [id number] Kay Nieves 2022-03-26 13:25:57 2022-03-26 23:59:00 Outpatient R RADIOLOGY [facility] [id number] [facility] 2022-03-26 13:25:57 2022-03-26 23:59:00 Hospital Encounter Radiology [facility] [id number] [facility] 2018-10-28 12:40:00 2018-10-28 16:20:00 Outpatient CESAR CARMONA [facility] ILSA Kelsi [id number] [facility] 2018-04-08 11:29:00 2018-04-08 15:18:00 Outpatient CESAR CARMONA [facility] ILSA Kelsi [id number] [facility] Notes Date/Time Note Provider Source 2024-05-10 08:57:56 [id number]:57:56F ormatting of this note is different from the original.Chief ComplaintPatient presents withRdin Marquis Cosme [id number] UwkzBX3302-93-36W52:12:54Nurse [id number]. [id number] for patient [id number] NoteLNNARRATIVEFormatted C-CDA narrative VandanaEzequiel Vhagkj6630 [facility] [id number] [id number]:12:541.2.840.004513.1.7 2.3.15|1.2.840.026263.1.13.131.2.7.2. [id number] [facility] 2024-04-18 09:00:58 [id number]:00:58F ormatting of this note is different from the original.Chief ComplaintPatient presents withBack PainLower backHx of PT, injection and 1 [place] [id number] HmcmTS5589-01-42W84:47:21Nurse [id number]. [id number] for patient [id number] NoteLNNARRATIVEFormatted C-CDA narrative textHudson [facility] and Clinic[facility] [facility].[id number] [id number]:47:211.2.840.166791.1.7 2.3.15|1.2.840.386085.1.13.131.2.7.2. [id number] [facility]"
--- NOTE | 2024-05-12 18:10 | RAD REPORT ---
EXAM DESCRIPTION: RAD - Ankle Right 3 View - 05/12/2024 5:47 pm CLINICAL HISTORY: Right ankle pain FINDINGS: No fracture or dislocation is seen. Soft tissue swelling
[2024-05-12] MEDS ORDERED: CODEINE 30MG/APAP 300MG TAB ONE (18:18)
--- NOTE | 2024-05-12 18:19 | ER ---
Nurse's Notes [facility] Name: Francisca Wolfe Age: 63 yrs Sex: Female : 1960 Arrival Date: 05/12/2024 Time: 16:38 Bed Treatment Private MD: Diagnosis: Sprain of ankle Presentation: 05/12 16:48 Chief complaint: Patient states: Tripped on curb 2 hours [employer]. B knee abrasions. R ankle ll1 swollen and painful since. Coronavirus screen: Client denies travel out of the [place] in the last 14 days. At this time, the client does not indicate any symptoms associated with coronavirus-19. Ebola Screen: Patient denies travel to an Ebola-affected area in the 21 days before illness onset. Initial Sepsis Screen: Does the patient meet any 2 criteria? No. Patient's initial sepsis screen is negative. Does the patient have a suspected source of infection? No. Patient's initial sepsis screen is negative. Risk Assessment: Do you want to hurt yourself or someone else? Patient reports no desire to harm self or others. Onset of symptoms was May 12, 2024. 16:48 Method Of Arrival: Wheelchair ll1 16:48 Acuity: EMILEE 4 ll1 Triage Assessment: 16:50 General: Appears uncomfortable, Behavior is calm, cooperative, appropriate for age. ll1 Pain: Complains of pain in R ankle Quality of pain is described as aching. Derm: abrasions both knees. Musculoskeletal: Reports pain in R ankle. Injury Description: Abrasion sustained to B knees Bruise. Historical: - Allergies: 16:48 No Known Drug Allergies; ll1 - PMHx: 16:48 chronic back pain; ll1 - PSHx: 16:48 back; ll1 - Immunization history:: Adult Immunizations up to date. - Infectious Disease History:: Denies. - Social history:: Smoking status: Patient denies any tobacco usage or history of. Screenin:43 [facility] ED Fall Risk Assessment (Adult) History of falling in the last 3 months, tl4 including since admission Yes- single mechanical fall (1 pt) Confusion or Disorientation No (0 pts) Intoxicated or Sedated No (0 pts) Impaired Gait No (0 pts) Mobility Assist Device Used No (0 pt) Altered Elimination No (0 pt) Score/Fall Risk Level 0 - 2 = Low Risk Oriented to surroundings, Maintained a safe environment, Educated pt \T\ family on fall prevention, incl call for assistance when getting out of bed, Assessed \T\ reinforced patient's understanding of fall precautions. Abuse screen: Denies threats or abuse. Denies injuries from another. Nutritional screening: No deficits noted. Tuberculosis screening: No symptoms or risk factors identified. Assessment: 18:04 General: Appears in no apparent distress. Behavior is calm, cooperative. Pain: tl4 Complains of pain in right foot. Neuro: Level of Consciousness is awake, alert, obeys commands, Oriented to person, place, time, situation, Moves all extremities. Full function Speech is normal. Cardiovascular: Capillary refill < 3 seconds Patient's skin is warm and dry. Respiratory: Airway is patent Respiratory effort is even, unlabored, Respiratory pattern is regular, Breath sounds are clear bilaterally. GI: No signs and/or symptoms were reported involving the gastrointestinal system. : No signs and/or symptoms were reported regarding the genitourinary system. EENT: No signs and/or symptoms were reported regarding the EENT system. Derm: No signs and/or symptoms reported regarding the dermatologic system. Musculoskeletal: Reports pain in right ankle. Vital Signs: 16:48 BP 119 / 83; Pulse 75; Resp 17; Temp 97.4; Pulse Ox 97% ; Pain 3/10; ll1 18:42 BP 112 / 66; Pulse 70; Resp 19; Temp 98.7(O); Pulse Ox 99% on R/A; Pain 8/10; tl4 16:48 Pain Scale: Adult ll1 18:42 Pain Scale: Adult tl4 ED Course: 16:40 Patient arrived in ED. mr 16:44 Lakeisha Jacob FNP-C is [facility]. kb 16:44 Ramón Carrasco MD is Attending Physician. kb 16:48 Arm band placed on. ll1 16:50 Triage completed. ll1 17:49 Ankle Right 3 View XRAY In Process Unspecified. EDMS 18:14 Adilson Martell, HENRRY is Primary Nurse. tl4 18:43 Patient has correct armband on for positive identification. Bed in low position. Call tl4 light in reach. Adult w/ patient. Provided Education on: ed process, call zarate. 18:44 No provider procedures requiring assistance completed. Patient did not have IV access tl4 during this emergency room visit. Administered Medications: 18:25 Drug: Acetaminophen-Codeine PO (300 mg-30 mg) 1 tablet PO once; RASS on ADMIN: Combtv4, tl4 Very Agttd3, Agttd2, Rstlss1, AlertClm0, Drwsy-1, Lt Sdtn-2, Mod Sdtn-3, Dp Sdtn-4, UnArsble-5 Route: PO; 18:40 Follow up: Response: No adverse reaction tl4 Medication: 18:43 VIS not applicable for this client. tl4 Outcome: 18:18 Discharge ordered by MD. larson 18:44 Discharged to home via wheelchair, with family, tl4 18:44 Condition: stable 18:44 Discharge instructions given to patient, family, Instructed on discharge instructions, follow up and referral plans. medication usage, Demonstrated understanding of instructions, follow-up care, medications, Prescriptions given X 1, 18:44 Patient left the ED. tl4 Signatures: Dispatcher [employer] EDMS Lakeisha Jacob, [employer]-C [employer]-Nida Metzger, Reg Reg mr Erik Coburn, RN RN ll1 Adilson Martell RN RN tl4
--- NOTE | 2024-05-12 18:19 | EDPHYS ---
Physician Documentation [facility] Name: Francisca Wolfe Age: 63 yrs Sex: Female : 1960 Arrival Date: 05/12/2024 Time: 16:38 Bed Treatment Private MD: ED Physician Ramón Carrasco HPI: 05/12 18:15 This 63 yrs old Female presents to ER via Wheelchair with complaints of Ankle Injury. kb 18:15 Pt is a 63 year old female who presents for right ankle pain and swelling after rolling kb it in the parking lot. Denies any other injuries. States she has been unable to bear weight. . Historical: - Allergies: 16:48 No Known Drug Allergies; ll1 - PMHx: 16:48 chronic back pain; ll1 - PSHx: 16:48 back; ll1 - Immunization history:: Adult Immunizations up to date. - Infectious Disease History:: Denies. - Social history:: Smoking status: Patient denies any tobacco usage or history of. ROS: 18:15 Constitutional: As per HPI kb Exam: 18:15 Constitutional: This is a well developed, well nourished patient who is awake, alert, kb and in no acute distress. Head/Face: Normocephalic, atraumatic. ENT: Moist Mucous membranes Cardiovascular: Regular rate Respiratory: Respirations even and unlabored. No increased work of breathing. Talking in full sentences Abdomen/GI: Soft, non-tender. No distention Skin: Warm, dry with normal turgor. Normal color. Neuro: Awake and alert, GCS 15, oriented to person, place, time, and situation. Moves all extremities. Normal gait. 18:15 Musculoskeletal/extremity: Extremities: grossly normal except: noted in the right ankle: pain, swelling, tenderness, ROM: intact in all extremities, Circulation is intact in all extremities. Sensation intact. Weight bearing: is unable to bear weight, Vital Signs: 16:48 BP 119 / 83; Pulse 75; Resp 17; Temp 97.4; Pulse Ox 97% ; Pain 3/10; ll1 18:42 BP 112 / 66; Pulse 70; Resp 19; Temp 98.7(O); Pulse Ox 99% on R/A; Pain 8/10; tl4 16:48 Pain Scale: Adult ll1 18:42 Pain Scale: Adult tl4 MDM: 16:45 Patient medically screened. kb 18:17 Differential diagnosis: fracture, sprain. Data reviewed: vital signs, nurses notes. kb Counseling: I had a detailed discussion with the patient and/or guardian regarding the historical points, exam findings, and any diagnostic results supporting the discharge/admit diagnosis, radiology results, the need for outpatient follow up, a family practitioner, to return to the emergency department if symptoms worsen or persist or if there are any questions or concerns that arise at home. 05/12 16:52 Order name: Ankle Right 3 View XRAY; Complete Time: 18:11 ll1 05/12 16:53 Order name: Ice pack; Complete Time: 18:40 kb Administered Medications: 18:25 Drug: Acetaminophen-Codeine PO (300 mg-30 mg) 1 tablet PO once; RASS on ADMIN: Combtv4, tl4 Very Agttd3, Agttd2, Rstlss1, AlertClm0, Drwsy-1, Lt Sdtn-2, Mod Sdtn-3, Dp Sdtn-4, UnArsble-5 Route: PO; 18:40 Follow up: Response: No adverse reaction tl4 Disposition: 19:08 Co-signature as Attending Physician, Ramón Carrasco MD I reviewed the patient's care rt provided by the Advanced Practice Provider and agree with the diagnosis and treatment plan. Disposition Summary: 05/12/24 18:18 Discharge Ordered Notes: Location: Home kb Condition: Stable kb Diagnosis - Sprain of ankle kb Followup: kb - With: Emergency Department - When: As needed - Reason: Worsening of condition Followup: kb - With: Private Physician - When: 2 - 3 days - Reason: Recheck today's complaints, Continuance of care, Re-evaluation by your physician Discharge Instructions: - Discharge Summary Sheet kb - Ankle Sprain, [id number] kb Forms: - Medication Reconciliation Form kb - Antibiotic Education kb - Prescription Opioid Use kb - Patient Portal Instructions kb - Leadership Thank You Letter kb Prescriptions: - Diclofenac Sodium 75 mg Oral tablet, delayed release (enteric coated) - take 1 tablet ORAL route 2 times per day As needed; 30 tablet; Refills: 0, kb Product Selection Permitted Signatures: Dispatcher [employer] Lakeisha Davila, PUBLICITY DIRECTOR-C LEIGH-Erik Medrano RN RN ll1 Ramón Carrasco MD MD rt Adilson Martell RN RN tl4 Corrections: (The following items were deleted from the chart) 18: Splint - Ankle: Aircast ordered. kb kb 18:17 Crutches ordered. kb kb
[2024-05-12 20:03] VITALS: BP 112/66; TEMP 98.7; O2SAT 99
== END 2024-05-12 18:44 | disposition home or self-care (01) ==
LOC: ER 16:38
DX: S93.401A Sprain of unspecified ligament of right ankle, initial encounter (principal); X50.1XXA Overexertion from prolonged static or awkward postures, initial encounter; Y92.481 Parking lot as the place of occurrence of the external cause
CPT/HCPCS: 99283